=== PATIENT | female | born 1955 | race Caucasian/White ===

== ENCOUNTER → 2017-01-14 | Outpatient (CLI) | payer BC ==
[~2017-01-14] MED LIST: CHOL1000 PO; COEN75CA PO; Calcium PO; FENT25DI10 TD; FLUO40CA8 PO; FNTTP25 TOP; GLIP1TAB60 PO; HYDR-3983 PO; LIDO2SOL19 MT; LISI-461 PO; MAGIC SWIZZLE PO; MAGIC1 PO; MULT-506 PO; OMEG12006 PO; ROSU5TAB PO; RXNS10 PO; RXNS5 PO; TRAZ1TAB16 PO; TRAZ50TA35 PO; [UNRECOGNIZED DRUG - CODE] PO; [UNRECOGNIZED DRUG - OTHER]
--- NOTE | 2017-01-14 09:20 | DIAGNOSTIC IMAGING REPORT ---
ULTRASOUND OF THE CAROTID ARTERIES CLINICAL HISTORY: Head and neck carcinoma COMPARISON STUDY: None. TECHNIQUE: Real-time, grayscale, and color Doppler sonography of the carotid arteries was performed. Imaging reviewed in the transverse and longitudinal planes. NASCET criteria was utilized for stenosis calcification. FINDINGS: There is mild atherosclerotic plaque present . The peak systolic velocity within the right internal carotid artery is 76 cm/sec. The systolic velocity ratio of right internal to common carotid artery is 0.7. The peak systolic velocity within the left internal carotid artery is 59 cm/sec. The systolic velocity ratio left internal to common carotid artery is 0.7. Antegrade flow is seen in the vertebral arteries. The external carotid arteries are patent. Blood pressure in the right arm measured 142 mm/Hg. Blood pressure in the left arm measured 124 mm/Hg. IMPRESSION: No evidence of hemodynamically significant carotid stenosis. Electronically signed by: Leroy Zheng M.D. 01/14/2017 9:19 AM Dictated Date/Time: 01/14/2017 8:53 AM
== END | disposition home or self-care (01) ==
LOC: C.ULTR 08:00
PROVIDERS: ATTEND Physician Assistant Medical
DX: C02.1 Malignant neoplasm of border of tongue (principal)

== ENCOUNTER 2017-03-07 14:48 | Observation (INO) | payer BC ==
[~2017-03-07] VITALS: Ht 152.4 cm; Wt 56.9 kg
[~2017-03-07 14:48] MED LIST changes: -CHOL1000 PO; -COEN75CA PO; -Calcium PO; -FENT25DI10 TD; -LIDO2SOL19 MT; -MAGIC1 PO; -MULT-506 PO; -OMEG12006 PO; -RXNS10 PO; -RXNS5 PO; -TRAZ1TAB16 PO; -TRAZ50TA35 PO; -[UNRECOGNIZED DRUG - CODE] PO
[2017-03-07] MEDS ORDERED: SODIUM CHLORIDE 0.9% 1000ML 1,000 ML IV ONE (15:30)
[2017-03-07] MEDS ORDERED: SODIUM CHLORIDE 0.9% 1000ML 1,000 ML IV STA (15:30)
--- NOTE | 2017-03-07 15:43 | EMERGENCY ROOM VISIT NOTE ---
History Report prepared by Erika: Drew Ramires Under the Supervision of: Dr. Efrain Nichols M.D. First contact with patient: 15:20 Chief Complaint: OTHER COMPLAINT Stated Complaint: NOT EATING History of Present Illness The patient is a 61 year old female who presents to the Emergency Room with complaints of constant inability to eat for the past three days. The patient has a history of tongue cancer that spread to her lymph node. She has had three tongue surgeries and six weeks of radiation, per her friend. She states that she has not eaten anything since three days ago, and she has not drank anything since yesterday when she had 2/3 of a bottle of Ensure. She states that he tongue hurts due to the radiation, and it lopes to eat and drink. She states that she has been breathing okay, and she gags after saying only a few words. She denies any fever, chills, abdominal pain, diarrhea, and using pain killers. She states that she is somewhat nauseous, and she has a history of diabetes. She additionally states that she has lost 30 pounds in the last 6 weeks, and she cannot take medications due to not being able to eat. Source of History: patient Onset: three days Position: other (global) Quality: other (unable to eat) Timing: constant Associated Symptoms: + nausea, No SOB, No abdominal pain, No chills, No diarrhea, No fevers Note: Associated symptoms: Tongue pain Review of Systems See HPI for pertinent positives & negatives. A total of 10 systems reviewed and were otherwise negative. Past Medical & Surgical Medical Problems: (1) Cancer of tongue (2) Diabetes (3) Dysphagia Old medical records were reviewed. Nurse's notes were reviewed and I agree with. She has a history of squamous cell tongue cancer as had several surgeries and most recently has had radiation. She's not on chemotherapy. Social History Smoking Status: Never Smoker Drug Use: none Marital Status: Occupation Status: employed Current/Historical Medications Scheduled Fentanyl (Fentanyl), 25 TOP CQ72HR Fluoxetine (Prozac), 40 MG PO DAILY Glipizide (Glucotrol Xl), 2.5 MG PO QAM Lisinopril (Zestril), 10 MG PO DAILY Rosuvastatin Calcium (Crestor), 1 TAB PO DAILY Scheduled PRN Hydrocodone/Acetaminophen 7.5MG/325MG ([place] 7.5MG/325MG), 1 PO DAILY PRN for Pain Miscellaneous Medications [magic swizzle] [thrush medicine] Allergies Coded Allergies: Bupropion (Verified Allergy, Mild, Rash, 03/07/17) Erythromycin (Verified Allergy, Unknown, Unknown, 03/07/17) Metformin (Verified Allergy, Unknown, Rash, 03/07/17) Amoxicillin (Verified Adverse Reaction, Mild, Nausea, 03/07/17) Clavulanic Acid (Verified Adverse Reaction, Mild, Nausea, 03/07/17) Physical Exam Vital Signs Date Time Temp Pulse Resp B/P Pulse Ox O2 Delivery O2 Flow Rate FiO2 03/07/17 14:52 36.8 103 20 113/77 96 Room Air Physical Exam General: Non-ill appearing middle-aged female in no acute distress. HEENT: Normal cephalic atraumatic. Pupils are equal round and reactive to light. Sclerae anicteric. Extraocular movements are intact. Oropharynx has whitish lesions and whitish discoloration of tongue. Ulcerations. Voice is not muffled. No stridor. Moist mucous membranes. No swelling of the mouth lips or tongue. Skin changes to radiation under the neck and chin. Neck: Supple with a midline trachea. No meningeal signs or stiffness, no JVD or bruits. No Stridor. Chest: Clear to auscultation bilaterally. No wheezes or rhonchi. No increased work of breathing. Heart: regular rate and rhythm. Abdomen: Soft nontender, nondistended without rebound guarding or rigidity. Extremities: No cyanosis clubbing or edema. No calf tenderness or assymetry Spine/Back. Non tender to palpation. No CVA tenderness Skin: Good turgor without rashes. Neurologic exam: Cranial nerves two through 12 are intact. Motor and sensation are intact and symmetrical throughout. Medical Decision & Procedures Laboratory Results 03/07/17 15:40 Test 03/07/17 15:40 03/07/17 17:00 RDW Standard Deviation 42.7 fL (36.4-46.3) RDW Coefficient of Variation 13.8 % (11.5-14.5) White Blood Count 4.75 K/uL (4.8-10.8) Red Blood Count 4.36 M/uL (4.2-5.4) Hemoglobin 12.9 g/dL (12.0-16.0) Hematocrit 37.5 % (37-47) Mean Corpuscular Volume 86.0 fL (80-100) Mean Corpuscular Hemoglobin 29.6 pg (25-34) Mean Corpuscular Hemoglobin Concent 34.4 g/dl (32-36) Platelet Count 217 K/uL (130-400) Mean Platelet Volume 9.6 fL (7.4-10.4) Neutrophils (%) (Auto) 76.9 % Lymphocytes (%) (Auto) 15.2 % Monocytes (%) (Auto) 6.9 % Eosinophils (%) (Auto) 0.6 % Basophils (%) (Auto) 0.2 % Neutrophils # (Auto) 3.65 K/uL (1.4-6.5) Lymphocytes # (Auto) 0.72 K/uL (1.2-3.4) Monocytes # (Auto) 0.33 K/uL (0.11-0.59) Eosinophils # (Auto) 0.03 K/uL (0-0.5) Basophils # (Auto) 0.01 K/uL (0-0.2) Immature Granulocyte % (Auto) 0.2 % Immature Granulocyte # (Auto) 0.01 K/uL (0.00-0.02) Anion Gap 14.0 mmol/L (3-11) Est Creatinine Clear Calc Drug Dose 100.2 ml/min BUN/Creatinine Ratio 17.1 (10-20) Calcium Level 9.0 mg/dl (8.5-10.1) Total Bilirubin 0.6 mg/dl (0.2-1) Direct Bilirubin 0.2 mg/dl (0-0.2) Aspartate Amino Transf (AST/SGOT) 23 U/L (15-37) Alanine Aminotransferase (ALT/SGPT) 33 U/L (12-78) Alkaline Phosphatase 74 U/L (45-117) Total Protein 6.7 gm/dl (6.4-8.2) Albumin 2.8 gm/dl (3.4-5.0) Lipase 66 U/L (73-393) Laboratory studies as stated above per my review. Medications Administered Medications (Trade) Dose Ordered Sig/Katy Route Start Time Stop Time Status Last Admin Dose Admin Sodium Chloride 1,000 ml @ 999 mls/hr Q1H1M STAT IV 5/21/17 15:30 03/07/17 16:30 DC 03/07/17 15:30 999 MLS/HR Sodium Chloride (Nss 1000ml) 1,000 ml @ 200 mls/hr Q5H ONCE IV 03/07/17 15:30 03/07/17 20:29 03/07/17 15:30 200 MLS/HR ED Course 1520: Past medical records reviewed. The patient was evaluated in room C5, and a complete history and physical examination were performed. 1530: Sodium Chloride 1000 ml @ 200 mls/hr IV, Sodium Chloride 1000 ml @ 999 mls /hr IV 1635: I reevaluated the patient, and she thinks that she needs to stay for further evaluation. 1640: I discussed the patient's case with Dr. Triplett. He is going to evaluate the patient for further treatment Medical Decision Differentials include, but are not limited to; dehydration, infection, cancer complications, electrolyte or metabolic abnormality. This patient comes in as described above she has a history of recurrent tongue cancer and had recent radiation. According to the patient and her friend and there was talk about putting a feeding tube in however she was trying to push fluids from the mouth. Over the weekend she has not been able to drink much fluid or food. She does look dehydrated. She has no evidence of any airway compromise or shortness of breath. IV access was established and she was Given 1 L normal saline bolus and then 200 mL an hour IV normal saline. She has no white count or fever to suggest infection. Electrolytes are not significantly abnormal. She's been unable take her medications either which is concerning. Her blood sugar so far looks good as does her blood pressure. I do think she needs to be observed overnight for IV hydration and have her radiation oncologist also look at her when she is in the hospital. It may be that she needs a feeding tube if she does not feel better they may also be able to work on some medications as well. I did consult Dr. Triplett from the [facility] team will see her for admission. Consults Time Called: 1635 Consulting Physician: Dr. Triplett Returned Call: 1640 I discussed the patient's case with Dr. Triplett. He is going to evaluate the patient for further treatment Impression Primary Impression: Dehydration Additional Impressions: Tongue cancer Radiation adverse effect Scribe Attestation The scribe's documentation has been prepared under my direction and personally reviewed by me in its entirety. I confirm that the note above accurately reflects all work, treatment, procedures, and medical decision making performed by me. Departure Information Dispostion Being Evaluated By Hospitalist Referrals No Doctor, Assigned (PCP) Patient Instructions My [facility] Problem Qualifiers
[2017-03-07 15:58] LABS: BASO % 0.2 %; BASO ABS # 0.01 K/uL (0-0.2); COMPLETE YES; EOS % 0.6 %; HEMATOCRIT 37.5 % (37-47); IG% 0.2 %; LYMPH % 15.2 %; LYMPH ABS # 0.72 K/uL (1.2-3.4); MEAN CORPUSCULAR HEMOGLOBIN 29.6 pg (25-34); MEAN CORPUSCULAR HGB CONC 34.4 g/dl (32-36); MEAN PLATELET VOLUME 9.6 fL (7.4-10.4); MONO % 6.9 %; NEUT % 76.9 %; PLATELET COUNT 217 K/uL (130-400); RED BLOOD COUNT 4.36 M/uL (4.2-5.4); WHITE BLOOD COUNT 4.75 K/uL (4.8-10.8)
[2017-03-07 16:23] LABS: BUN/CREATININE RATIO 17.1 (10-20); CREATININE 0.47 mg/dl (0.60-1.20); POTASSIUM 3.1 mmol/L (3.5-5.1)
[2017-03-07] MEDS ORDERED: ACETAMINOPHEN 325 MG TAB PO PRN (17:00)
[2017-03-07] MEDS ORDERED: ALUMINUM/MAGNESIUM/SIMETH (MAALOX MAX) 30 ML UDC PO PRN (17:00)
[2017-03-07] MEDS ORDERED: ZOLPIDEM TARTRATE 5 MG TAB PO PRN ×2 (17:00)
[2017-03-07] MEDS ORDERED: ONDANSETRON INJ 2 MG/ML 2 ML VIAL IV PRN (17:00)
[2017-03-07 17:14] LABS: PROTHROMBIN TIME (PATIENT) 11.1 SECONDS (9.0-12.0)
[2017-03-07 17:34] VITALS: BP 113/77; PULSE 103; TEMP 36.8; O2SAT 96; BMI 24.3
[2017-03-07] MEDS ORDERED: MoRPHine SULFATE 4 MG/ML 1 ML CARP\\VIAL IV PRN (17:45)
--- NOTE | 2017-03-07 17:51 | History and Physical ---
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 The pt was going into the last dose of radiation with moderate dysphagia for which she received IV fluids earlier in the week. It was decided to continue with the last treatment and the pt has been unable to swallow for the past two days. Pt also cannot speak in long phrases, she cannot swallow her medications, drink or eat with significant 8/10 pain or desire to vomit. At rest she rates her throat pain as 5/10. Pt is still able to communicate in short phrases. Pt is using a fentanyl patch for her pain. ROS: No fevers, no night sweats, no SOB, no difficulty breathing. No abdominal pain. PMHx: HTN, HLD, Mood, DM2 (oral agents) Meds: Fentanyl Patch, VIMAL, Statin, Glypizide, SSRI SHx: Vegetarian Social History Smoking Status: Never Smoker Allergies Coded Allergies: Bupropion (Verified Allergy, Mild, Rash, 03/07/17) Erythromycin (Verified Allergy, Unknown, Unknown, 03/07/17) Metformin (Verified Allergy, Unknown, Rash, 03/07/17) Amoxicillin (Verified Adverse Reaction, Mild, Nausea, 03/07/17) Clavulanic Acid (Verified Adverse Reaction, Mild, Nausea, 03/07/17) Home Medications Scheduled Fentanyl (Fentanyl), 25 TOP CQ72HR Fluoxetine (Prozac), 40 MG PO DAILY Glipizide (Glucotrol Xl), 2.5 MG PO QAM Lisinopril (Zestril), 10 MG PO DAILY Rosuvastatin Calcium (Crestor), 1 TAB PO DAILY Scheduled PRN Hydrocodone/Acetaminophen 7.5MG/325MG ([place] 7.5MG/325MG), 1 PO DAILY PRN for Pain Miscellaneous Medications [magic swizzle] [thrush medicine] Review of Systems Constitutional: No chills, No fever Respiratory: No cough, No shortness of breath Cardiovascular: No chest pain Abdomen: No constipation, No diarrhea, No nausea, No pain, No vomiting Physical Exam Vital Signs Date Time Temp Pulse Resp B/P Pulse Ox O2 Delivery O2 Flow Rate FiO2 03/07/17 14:52 36.8 103 20 113/77 96 Room Air General Appearance: WD/WN, + mild distress Eyes: normal inspection, PERRL, EOMI, sclerae normal ENT: hearing grossly normal, + pertinent finding (Pt has a milky coating inside of her mouth and hallitosis. Left sided throat pain on phonation, swallowing and opening her mouth. Difficulty to visualize throat and tongue due to exudates. ) Respiratory/Chest: chest non-tender, lungs clear, normal breath sounds, no respiratory distress, no accessory muscle use Cardiovascular: regular rate, rhythm, no edema, no gallop, no JVD, no murmur Neurologic/Psych: alert, normal mood/affect, oriented x 3 Skin: normal color, no rash, + pertinent finding (erythematous skin changes over the left side of the neck, left anterior neck. ) Diagnostics Laboratory Results Results Past 24 Hours Test 03/07/17 15:40 Range/Units White Blood Count 4.75 4.8-10.8 K/uL Red Blood Count 4.36 4.2-5.4 M/uL Hemoglobin 12.9 12.0-16.0 g/dL Hematocrit 37.5 37-47 % Mean Corpuscular Volume 86.0 80-100 fL Mean Corpuscular Hemoglobin 29.6 25-34 pg Mean Corpuscular Hemoglobin Concent 34.4 32-36 g/dl Platelet Count 217 130-400 K/uL Mean Platelet Volume 9.6 7.4-10.4 fL Neutrophils (%) (Auto) 76.9 % Lymphocytes (%) (Auto) 15.2 % Monocytes (%) (Auto) 6.9 % Eosinophils (%) (Auto) 0.6 % Basophils (%) (Auto) 0.2 % Neutrophils # (Auto) 3.65 1.4-6.5 K/uL Lymphocytes # (Auto) 0.72 1.2-3.4 K/uL Monocytes # (Auto) 0.33 0.11-0.59 K/uL Eosinophils # (Auto) 0.03 0-0.5 K/uL Basophils # (Auto) 0.01 0-0.2 K/uL RDW Standard Deviation 42.7 36.4-46.3 fL RDW Coefficient of Variation 13.8 11.5-14.5 % Immature Granulocyte % (Auto) 0.2 % Immature Granulocyte # (Auto) 0.01 0.00-0.02 K/uL Sodium Level 142 136-145 mmol/L Potassium Level 3.1 3.5-5.1 mmol/L Chloride Level 102 98-107 mmol/L Carbon Dioxide Level 26 21-32 mmol/L Anion Gap 14.0 3-11 mmol/L Blood Urea Nitrogen 8 7-18 mg/dl Creatinine 0.47 0.60-1.20 mg/dl Est Creatinine Clear Calc Drug Dose 100.2 ml/min Estimated GFR () 124.4 Estimated GFR (Non- 107.4 BUN/Creatinine Ratio 17.1 10-20 Random Glucose 89 70-99 mg/dl Calcium Level 9.0 8.5-10.1 mg/dl Total Bilirubin 0.6 0.2-1 mg/dl Direct Bilirubin 0.2 0-0.2 mg/dl Aspartate Amino Transf (AST/SGOT) 23 15-37 U/L Alanine Aminotransferase (ALT/SGPT) 33 12-78 U/L Alkaline Phosphatase 74 45-117 U/L Total Protein 6.7 6.4-8.2 gm/dl Albumin 2.8 3.4-5.0 gm/dl Lipase 66 73-393 U/L Impression Assessment and Plan 61F who just current finished radiation therapy 3 days prior for squamous cell carcinoma of the tongue p/w a 2 day history of dysphagia, likely due to post radiation inflammation. Dysphagia 2/2 Radiation Therapy - Morphine 4mg Q4PRN IV for Pain control - Fentanyl Patch 25mcg changed every 3 days. - Toradol 30mg now + Toradol 30mg IV Q6H PRN for mild pain. - Pureed vegetarian diet as tolerated. If cannot tolerate consider NG tube or Parental nutrition. - Will hold all PO meds (Fluoxetine, VIMAL, glipizide) - Continue to rehydrate, 150ml half normal NSS + 20meq KCL. Low Potassium: 20meq IV once in the ER , continue to monitor. Will check Mg and Phos tomorrow AM. DM2 - Hold Glyburide, last taken 5 days ago. HTN - BP well controlled, will hold VIMAL, continue to monitor. Mood - No SI or HI. Fluoxetine was last taken 5 days ago. Will continue to monitor. DVT Proph: Lovenox SQ 40units daily. Diet: Vegetarian diet, pureed. Dispo: Observation, med surg, Full Code. Resident Physician Supervision Note: I interviewed and examined the patient. Discussed with Dr. Wilson and agree with findings and plan as documented in the note. Any exceptions or clarifications are listed here: None Documented By: Hiro Triplett mouth pain, after radiation, actively undergoing XRT can't really eat or drink well right now, ros otherwise negative except for as above vitals noted, pleasant, face reddened w XRT changes, tongue covered with mucous and appearing somewhat desquamated, nothing appearing consistent with thrush or bacterial infeciton at this time dysphagia/mouth pain/radiation induced tongue / mouth changes -supportive care, IVF -pain control -follow closely - if worsens or fails to improve, then consult radiation oncology, ENT, or both Resident Involvement: Resident Care Provided Care Provided: Adult [facility] Medicine
[2017-03-07] MEDS ORDERED: KETOROLAC TROMETHAMINE 30 MG/ML VIAL IV PRN (18:15)
[2017-03-07] MEDS ORDERED: POTASSIUM CHLR 20 MEQ / WTR 20 MEQ in PREMIXED WATER 100 ML IV ONE (18:30)
[2017-03-07] MEDS ORDERED: IV FLUIDS COMPLETED PRN (18:45)
[2017-03-07 19:12] VITALS: O2SAT 98
[2017-03-07 19:36] VITALS: BP 125/76; PULSE 82; TEMP 37.4; O2SAT 97
[2017-03-07] MEDS: SODIUM CHLOR 0.45% + 20MEQ KCL 1,000 ML IV SCH (19:51)
[2017-03-07] MEDS ORDERED: KETOROLAC TROMETHAMINE 30 MG/ML VIAL IV ONE (20:00)
[2017-03-07] MEDS: POTASSIUM CHLR 10MEQ / WTR IV SCH ×2 (20:50→22:12)
[2017-03-07] MEDS: ENOXAPARIN 40 MG/0.4 ML SYR SQ SCH (20:51)
[2017-03-08 00:21] VITALS: BP 95/58; PULSE 82; TEMP 36.8; O2SAT 96
[2017-03-08] MEDS: SODIUM CHLOR 0.45% + 20MEQ KCL 1,000 ML IV SCH ×4 (02:40→22:15)
[2017-03-08 04:47] VITALS: BP 95/60; PULSE 79; TEMP 36.5; O2SAT 97
[2017-03-08 06:21] VITALS: BMI 24.5
[2017-03-08 06:46] LABS: BUN/CREATININE RATIO 9.1 (10-20); CALCIUM 7.9 mg/dl (8.5-10.1); CREATININE 0.41 mg/dl (0.60-1.20); MAGNESIUM 1.8 mg/dl (1.8-2.4); PHOSPHORUS 2.4 mg/dl (2.5-4.9); POTASSIUM 3.9 mmol/L (3.5-5.1)
--- NOTE | 2017-03-08 07:38 | Family Medicine Progress Note ---
Progress Note Date of Service March 08, 2017. Subjective Pt evaluation today including: conversation w/ patient, physical exam, chart review, lab review The patient was seen and examined at bedside. Pt still reports dysphagia and pain after talking. Pt is trying to eat - took 5 bites of her eggs this morning. Last morphine was at 10pm the previous evening. Patient is resting comfortably in bed. Plan of care was described to the patient and all questions were answered. Constitutional: No chills, No fever, No sweats Cardiovascular: No chest pain Abdomen: No diarrhea, No nausea, No pain, No vomiting Female : No dysuria Objective Physical Exam General Appearance: WD/WN, no apparent distress ENT: + pertinent finding (Milky substance in the mouth, likely inflammatory exudate. Tongue is inflamed. Similar to previous day. ) Neck: + pertinent finding (Tender mandible on the left side, no appreciable lymph nodeso n the left, hard indurated skin, no evidence of infection, post radiation skin changes appreciated on the left side of the face. Unchanged exam from previous day. ) Respiratory/Chest: chest non-tender, lungs clear, normal breath sounds, no respiratory distress, no accessory muscle use Cardiovascular: regular rate, rhythm, no edema, no gallop, no JVD, no murmur Abdomen: non tender, soft Neurologic/Psychiatric: alert, normal mood/affect, oriented x 3 Assessment and Plan 61F who just current finished radiation therapy 3 days prior for squamous cell carcinoma of the tongue p/w a 2 day history of dysphagia, likely due to post radiation inflammation. Speech therapy eval today. Pt is progressing slowly in terms of PO tolerance. Dysphagia 2/2 Radiation Therapy - Morphine IV 2mg Q4 scheduled for pain control in hope of eating + 2mg IV Q4PRN IV for breakthrough pain. - Fentanyl Patch 25mcg changed every 3 days. - Toradol 30mg IV Q6H PRN for mild pain. - Pureed vegetarian diet as tolerated. Tolerating some PO. - Will hold all PO meds (Fluoxetine, VIMAL, glipizide) - Continue to rehydrate, 150ml half normal NSS + 20meq KCL. Low Potassium: 20meq IV once in the ER , continue to monitor. DM2- Hold Glyburide, last taken 5 days ago. HTN - BP well controlled, will hold VIMAL, continue to monitor. Mood - No SI or HI. Fluoxetine was last taken 5 days ago. Will continue to monitor. DVT Proph: Lovenox SQ 40units daily. Diet: Vegetarian diet, pureed. Dispo: Observation, med surg, Full Code. Resident Involvement: Resident Care Provided Care Provided: Adult Hospital Medicine History Resident Physician Supervision Note: I was present with Dr. Wilson during the history and exam. I discussed the case with the resident and agree with the findings and plan as documented in the note. Any exceptions or clarifications are listed here. Pt seen and examined at bedside. No acute events overnight. Pain control is adequate at rest but insufficient for PO intake. No pain meds in the last 12 hours. Jaw pain improving but still present L > R. General Appearance: WD/WN, no apparent distress Ears, Nose, Throat: muffled/hoarse voice, other (significant erythema and desqamation of the oral mucosa which is TTP) Neck: non-tender Respiratory: chest non-tender, lungs clear, normal breath sounds, no respiratory distress Cardiovascular: normal peripheral pulses, regular rate, rhythm, no edema, no murmur Assessment/Plan 61 y/o female h/o squamous cell carcinoma of the tongue s/p radiation therapy w / progressive dysphagia Dysphagia w/ oral pain - likely 2/2 radiation therapy - continue fentanyl patch for baseline pain control - increase morphine to standing order for pain control w/ PRN dosing to facilitate PO intake - pureed diet tolerated w/ small quantities 2/2 pain - continue IV hydration, will decrease to 80 cc/hr tonight - GU[employer] consult Hypokalemia - improved - trend BMP in AM DMII - ISS while inpatient, holding glyburide HTN - holding ACEI w/ nl BP Depression/Adjustment disorder - holding fluoxetine 2/2 NPO DVT PPX lovenox
[2017-03-08 07:44] VITALS: BP 112/69; PULSE 84; TEMP 36.8; O2SAT 98
[2017-03-08] MEDS: CHECK FENTANYL PATCH PLACEMENT SCH ×3 (08:09→15:27)
[2017-03-08 11:48] VITALS: BP 93/63; PULSE 89; TEMP 36.9; O2SAT 96
[2017-03-08] MEDS: MoRPHine SULFATE 2 MG/ML CARP IV SCH ×3 (12:42→20:51)
[2017-03-08 15:41] VITALS: BP 91/57; PULSE 82; TEMP 37.2; O2SAT 97
[2017-03-08 19:33] VITALS: BP 113/70; PULSE 79; TEMP 36.9; O2SAT 98
[2017-03-08] MEDS: ENOXAPARIN 40 MG/0.4 ML SYR SQ SCH (20:52)
[2017-03-09] VITALS (7 sets, daily range): BP systolic 94–126; BP diastolic 62–75; PULSE 76–90; TEMP 36.5–37; O2SAT 95–99; Ht 152.4 cm; Wt 56.9 kg
[2017-03-09] MEDS: CHECK FENTANYL PATCH PLACEMENT SCH ×6 (00:04→23:45)
[2017-03-09] MEDS: MoRPHine SULFATE 2 MG/ML CARP IV PRN ×2 (01:15→19:50)
[2017-03-09] MEDS: SODIUM CHLOR 0.45% + 20MEQ KCL 1,000 ML IV SCH ×3 (05:12→18:40)
[2017-03-09 07:06] LABS: HEMATOCRIT 36.5 % (37-47); MEAN CELL VOLUME 87.5 fL (80-100); MEAN CORPUSCULAR HEMOGLOBIN 28.3 pg (25-34); MEAN CORPUSCULAR HGB CONC 32.3 g/dl (32-36); MEAN PLATELET VOLUME 9.8 fL (7.4-10.4); PLATELET COUNT 187 K/uL (130-400); RED BLOOD COUNT 4.17 M/uL (4.2-5.4); WHITE BLOOD COUNT 3.51 K/uL (4.8-10.8)
[2017-03-09 07:35] LABS: BUN/CREATININE RATIO 2.9 (10-20); CALCIUM 8.3 mg/dl (8.5-10.1); CREATININE 0.37 mg/dl (0.60-1.20); POTASSIUM 4.2 mmol/L (3.5-5.1)
[2017-03-09] MEDS ORDERED: MoRPHine SULFATE 4 MG/ML 1 ML CARP\\VIAL IV SCH (08:00)
--- NOTE | 2017-03-09 08:18 | Family Medicine Progress Note ---
Progress Note Date of Service March 09, 2017. Subjective Pt evaluation today including: conversation w/ patient, physical exam, chart review, lab review The patient was seen and examined at bedside. No acute overnight events. Pt did not get any pain medications overnight. States that she only needs pain medications before eating. Pt barely ate any dinner, had a few bites of her food. Pt was able to swallow diflucan solution and Miralax (pt states she hasn't pooped in a week and a half) . Pt saw Dr. García this AM which was a nice surprise for her. Pt feels that she isn't at the point where she can drink on her own. Discussed oral pain medication solution before meals and she was happy with this plan. Will also keep on Toradol IV as she feels that it works the best. Constitutional: No chills, No fever, No sweats, No weight loss ENT: No hearing loss Respiratory: No cough, No shortness of breath, No sputum, No wheezing Cardiovascular: No chest pain Abdomen: + constipation, No diarrhea, No nausea, No pain, No vomiting Objective Physical Exam General Appearance: WD/WN, no apparent distress ENT: + pertinent finding (moderate swelling of the tongue with white purulent material in the tongue) Neck: no adenopathy Respiratory/Chest: chest non-tender, lungs clear, normal breath sounds, no respiratory distress, no accessory muscle use Cardiovascular: regular rate, rhythm, no edema, no gallop, no JVD, no murmur Abdomen: normal bowel sounds, non tender, soft, no organomegaly Extremities: non-tender, normal inspection, no pedal edema, no calf tenderness , + pertinent finding (Decreased tenderness to palpation over the left mandible. ) Neurologic/Psychiatric: alert, normal mood/affect, oriented x 3 Skin: + pertinent finding (Improved skin hyperemia over the left face and neck. Margins appears to have decreased slightly and the color is film waxer than previous day. ) Assessment and Plan 61F who just current finished radiation therapy 3 days prior to admission for squamous cell carcinoma of the tongue p/w a 2 day history of dysphagia, likely due to post radiation inflammation. Speech on board. Pt is progressing slowly in terms of PO tolerance. Now treating for oral candidiasis. Dysphagia 2/2 Radiation Therapy - Morphine 5mg oral solution AC. + 2mg IV Q4PRN IV for breakthrough pain. - c/w Fentanyl Patch 32.5mcg changed every 3 days. - Toradol 30mg IV Q6H PRN for mild pain. - Pureed vegetarian diet as tolerated. Tolerating some PO. - Will hold all PO meds (Fluoxetine, VIMAL, glipizide) - Continue to rehydrate, 150ml half normal NSS + 20meq KCL. Oral candidiasis - Diflucan 10 day course, 200mg today and 100mg thereafter. - Will continue to monitor. DM2- Hold Glyburide, last taken 5 days ago. HTN - BP well controlled, will hold VIMAL, continue to monitor. Mood - No SI or HI. Fluoxetine was last taken 5 days ago. Will continue to monitor. DVT Proph: Lovenox SQ 40units daily. Diet: Vegetarian diet, pureed. Dispo: Observation, med surg, Full Code. Resident Involvement: Resident Care Provided Care Provided: [facility] Medicine History Resident Physician Supervision Note: I was present with Dr. Wilson during the history and exam. I discussed the case with the resident and agree with the findings and plan as documented in the note. Any exceptions or clarifications are listed here. Pt seen and examined at bedside. Pain is improving both at rest and with intake , especially with pain medication. Looking forward to increasing PO intake and asking for softboiled eggs. Tolerating liquid medications by mouth. General Appearance: WD/WN, no apparent distress Ears, Nose, Throat: pharyngeal erythema (with desqamating oral mucosa and concern for candidaisis), muffled/hoarse voice, other (improved b/l L > R jaw pain w/ skin erythema) Neck: non-tender, full range of motion Respiratory: chest non-tender, lungs clear, normal breath sounds, no respiratory distress Cardiovascular: normal peripheral pulses, regular rate, rhythm, no edema, no murmur Assessment/Plan 61 y/o female h/o squamous cell carcinoma of the tongue s/p radiation therapy w / progressive dysphagia Dysphagia w/ oral pain - likely 2/2 radiation therapy - continue fentanyl patch for baseline pain control - transition to PO liquid Roxanol to prepare for discharge, qAC to facilitate POI - pureed diet tolerated w/ small quantities 2/2 pain - continue IV hydration @ 80cc/hr - [employer] consult pending Hypokalemia - resolved DMII - ISS while inpatient, holding glyburide HTN - holding ACEI w/ nl BP Depression/Adjustment disorder - restart fluoxetine in AM DVT PPX lovenox
[2017-03-09] MEDS ORDERED: FLUCONAZOLE 200 MG/5 ML UDP PO ONE ×2 (09:00)
[2017-03-09] MEDS: POLYETHYLENE (MIRALAX) 17 GM PACK PO PRN (09:11)
[2017-03-09] MEDS: MAGNESIUM HYDROXIDE SUSP 30 ML UDC PO PRN (09:11)
--- NOTE | 2017-03-09 09:39 | Radiation Oncology Progress Nt ---
Radiation Oncology Progress Nt Date of Service Date of Service: March 09, 2017. Subjective Pt evaluation today including: conversation w/ patient, physical exam, chart review, lab review, review of studies, conversation w/ consultant intern Review of Systems Constitutional: + fatigue, + weakness, + weight loss ENT: + sore throat, + trouble swallowing All Other Systems: Reviewed and Negative Objective Vital Signs Date Time Temp Pulse Resp B/P Pulse Ox O2 Delivery O2 Flow Rate FiO2 03/09/17 08:06 36.7 82 18 116/74 99 Room Air 03/09/17 04:05 36.5 76 16 94/62 97 Room Air 03/09/17 04:00 Room Air 03/09/17 00:18 36.6 82 20 126/75 98 Room Air 03/09/17 00:00 Room Air 03/08/17 19:33 36.9 79 16 113/70 98 Room Air 03/08/17 16:10 Room Air 03/08/17 15:41 37.2 82 20 91/57 97 03/08/17 11:48 36.9 89 18 93/63 96 Room Air Physical Exam General Appearance: + mild distress ENT: + pertinent finding (OC/OP: mucositis and potentially thrush noted involving tongue and oral cavity. ) Neck: supple, no adenopathy, + pertinent finding (Erythema noted in the left neck, improving significantly. ) Laboratory Results Last 24 Hours Test 03/09/17 06:17 White Blood Count 3.51 K/uL Red Blood Count 4.17 M/uL Hemoglobin 11.8 g/dL Hematocrit 36.5 % Mean Corpuscular Volume 87.5 fL Mean Corpuscular Hemoglobin 28.3 pg Mean Corpuscular Hemoglobin Concent 32.3 g/dl RDW Standard Deviation 44.4 fL RDW Coefficient of Variation 14.4 % Platelet Count 187 K/uL Mean Platelet Volume 9.8 fL Sodium Level 144 mmol/L Potassium Level 4.2 mmol/L Chloride Level 108 mmol/L Carbon Dioxide Level 27 mmol/L Anion Gap 9.0 mmol/L Blood Urea Nitrogen 1 mg/dl Creatinine 0.37 mg/dl Est Creatinine Clear Calc Drug Dose 128.3 ml/min Estimated GFR () 134.6 Estimated GFR (Non- 116.2 BUN/Creatinine Ratio 2.9 Random Glucose 74 mg/dl Calcium Level 8.3 mg/dl Assessment and Plan Ms. Tariq is a 61-year-old female who presents with locally advanced cancer involving the left lateral oral tongue status post partial glossectomy and adjuvant radiation therapy which recently completed in January 2017. Unfortunately, the patient has been admitted to the hospital due to failure to thrive and dehydration. I was asked to evaluate the patient regarding radiation therapy side effects following the completion of her therapy. At this point, I do agree with the current management of the team including IV hydration, nutritional support and speech pathology evaluation. Additionally, I would recommend consideration of Diflucan to treat oral candidiasis given the fact the patient was previously treated successfully in the beginning of her radiation therapy course with Diflucan. Please call me with any further questions or concerns. The patient had multiple questions which were answered to her full satisfaction. Continued [facility] stay due to: inadequate po fluid intake, inadequate oral pain control
[2017-03-09] MEDS ORDERED: NURSING VERBAL MED ORDER ONE (12:00)
[2017-03-09] MEDS ORDERED: FENTANYL 25 MCG/HR TDSY ONE (12:08)
[2017-03-09] MEDS ORDERED: FENTANYL 12 MCG/HR TDSY ONE (12:08)
[2017-03-09] MEDS: MoRPHine SULFATE 5 MG/0.25 ML UDP PO PRN ×3 (12:11→23:44)
[2017-03-09] MEDS: BOOST BREEZE NUTRITION DRINK 1 BOX PO SCH (18:39)
[2017-03-09] MEDS: ENOXAPARIN 40 MG/0.4 ML SYR SQ SCH (19:50)
[2017-03-10 03:44] VITALS: BP 98/63; PULSE 80; TEMP 36.7; O2SAT 95
[2017-03-10 06:38] LABS: HEMATOCRIT 37.2 % (37-47); MEAN CELL VOLUME 88.4 fL (80-100); MEAN CORPUSCULAR HEMOGLOBIN 29.5 pg (25-34); MEAN CORPUSCULAR HGB CONC 33.3 g/dl (32-36); MEAN PLATELET VOLUME 10.1 fL (7.4-10.4); PLATELET COUNT 188 K/uL (130-400); RED BLOOD COUNT 4.21 M/uL (4.2-5.4); WHITE BLOOD COUNT 3.93 K/uL (4.8-10.8)
[2017-03-10] MEDS: SODIUM CHLOR 0.45% + 20MEQ KCL 1,000 ML IV SCH (06:58)
[2017-03-10 07:10] LABS: BLOOD UREA NITROGEN < 1 mg/dl (7-18); CALCIUM 8.5 mg/dl (8.5-10.1); CARBON DIOXIDE 30 mmol/L (21-32); CHLORIDE 103 mmol/L (98-107); CREATININE 0.43 mg/dl (0.60-1.20); GLUCOSE 90 mg/dl (70-99); POTASSIUM 4.6 mmol/L (3.5-5.1); SODIUM 141 mmol/L (136-145)
[2017-03-10 07:34] VITALS: BP 102/66; PULSE 85; TEMP 36.8; O2SAT 94
[2017-03-10] MEDS: BOOST BREEZE NUTRITION DRINK 1 BOX PO SCH (08:00)
[2017-03-10] MEDS ORDERED: FLUCONAZOLE SUSP 100 MG/10 ML UDP PO SCH ×4 (08:00)
[2017-03-10] MEDS: CHECK FENTANYL PATCH PLACEMENT SCH ×2 (08:04)
[2017-03-10] MEDS: MoRPHine SULFATE 5 MG/0.25 ML UDP PO PRN ×2 (08:06→12:04)
[2017-03-10] MEDS: POLYETHYLENE (MIRALAX) 17 GM PACK PO PRN (08:07)
[2017-03-10] MEDS: MAGNESIUM HYDROXIDE SUSP 30 ML UDC PO PRN (08:07)
--- NOTE | 2017-03-10 08:49 | Family Medicine Progress Note ---
Progress Note Date of Service March 10, 2017. Subjective Pt evaluation today including: conversation w/ patient, physical exam, chart review, lab review The patient was seen and examined at bedside. Pt reports that the liquid morphine is doing well. Managed to eat all of her eggs. When mentioned she would like to go home on the oral morphine. Patient is resting comfortably in bed. Feels that her pain is getting much better. Is phonating and eating for prolonged periods of time without difficulty. Plan of care was described to the patient and all questions were answered. Constitutional: No chills, No fever, No sweats Respiratory: No cough, No dyspnea on exertion, No shortness of breath, No sputum, No wheezing Cardiovascular: No chest pain Abdomen: No nausea, No pain Objective Physical Exam General Appearance: WD/WN Eyes: EOMI Neck: + pertinent finding (improved from previous day, non tender mandibular area on left and right, still has some mucoid white substance in the mouth, neck is softer than previous day, noticeable improvement.) Respiratory/Chest: chest non-tender, lungs clear, normal breath sounds, no respiratory distress, no accessory muscle use Cardiovascular: regular rate, rhythm, no edema, no gallop, no JVD, no murmur Abdomen: normal bowel sounds, non tender, soft, no organomegaly, no pulsatile mass Neurologic/Psychiatric: alert, normal mood/affect, oriented x 3 Assessment and Plan 61F who just current finished radiation therapy 3 days prior to admission for squamous cell carcinoma of the tongue p/w a 2 day history of dysphagia, likely due to post radiation inflammation. Pt is progressing slowly in terms of PO tolerance. Now treating for oral candidiasis. Dysphagia 2/2 Radiation Therapy - Morphine 5mg oral solution AC. + 2mg IV Q4PRN IV for breakthrough pain. - c/w Fentanyl Patch 32.5mcg changed every 3 days. - Toradol 30mg IV Q6H PRN for mild pain. - Pureed vegetarian diet as tolerated. Tolerating some PO. - Will hold all PO meds (Fluoxetine, VIMAL, glipizide) - Continue to rehydrate, 150ml half normal NSS + 20meq KCL. Oral candidiasis - Diflucan 10 day course, 200mg today and 100mg thereafter. - Will continue to monitor. DM2- Hold Glyburide, last taken 5 days ago. HTN - BP well controlled, will hold VIMAL, continue to monitor. Mood - No SI or HI. Fluoxetine was last taken 5 days ago. Will continue to monitor. DVT Proph: Lovenox SQ 40units daily. Diet: Vegetarian diet, pureed. Dispo: Observation, med surg, Full Code. Resident Involvement: Resident Care Provided Care Provided: Adult [facility] Medicine History Resident Physician Supervision Note: I was present with Dr. Wilson during the history and exam. I discussed the case with the resident and agree with the findings and plan as documented in the note. Any exceptions or clarifications are listed here. Pt seen and examined at bedside. No acute events overnight. Tolerated meals well with pain well controlled. Tolerating PO meds. Feels that facial and oral pain has improved considerably. Reports no fever, choking/gasping, SOB, coughing. General Appearance: WD/WN, no apparent distress Ears, Nose, Throat: other (mildly improved mucosal erythema w/ persistent desqamation throughout) Neck: non-tender, full range of motion Respiratory: chest non-tender, lungs clear, normal breath sounds, no respiratory distress Cardiovascular: normal peripheral pulses, regular rate, rhythm, no edema, no murmur Skin Characteristics: other (improving facial erythema and left jaw pain, right jaw pain resolved) Assessment/Plan 61 y/o female h/o squamous cell carcinoma of the tongue s/p radiation therapy w / progressive dysphagia Dysphagia w/ oral pain - likely 2/2 radiation therapy - continue fentanyl patch , PO roxanol - pureed diet, advance as tolerated - off IVF Hypokalemia - resolved DMII - ISS while inpatient, holding glyburide, restart regimen as outpatient HTN - restart VIMAL-I on discharge Depression/Adjustment disorder - continue fluoxetine DVT PPX lovenox
[2017-03-10] MEDS ORDERED: FENTANYL PATCH REMOVE & WASTE SCH (08:59)
[2017-03-10] MEDS ORDERED: FENTANYL 25 MCG/HR TDSY TD SCH (09:00)
[2017-03-10] MEDS ORDERED: RXNS5 PO (10:50)
[2017-03-10] MEDS ORDERED: [UNRECOGNIZED DRUG - CODE] PO (10:50)
--- NOTE | 2017-03-10 10:59 | Discharge Instructions ---
Discharge Instructions Date of Service March 10, 2017. Admission Reason for Admission: Dysphagia Discharge Discharge Diagnosis / Problem: Dysphagia Discharge Goals Goal(s): Decrease discomfort, Improve function, Improve nutritional status Activity Recommendations Activity Limitations: resume your previous activity . Instructions / Follow-Up Instructions / Follow-Up Please take your medications as prescribed. You have been given oral Diflucan 100mg every morning for the next 7 days. You have also been given a prescription for oral solution of Morphine that should be taken before meals if you are still having pain when swallowing and eating. Follow up with your PCP within the next 7 days. Please keep all of your other oncology follow up appointments as scheduled including all of the speech and swallow therapy visits that were scheduled. Current Hospital Diet Patient's current hospital diet: Vegetarian Diet Discharge Diet Recommended Diet: Regular Diet (soft foods, pureed in physician office rep if necessary) Pending Studies Studies pending at discharge: no Medical Emergencies . Who to Call and When: Medical Emergencies: If at any time you feel your situation is an emergency, please call 911 immediately. . Non-Emergent Contact Non-Emergency issues call your: Primary Care Provider, Oncologist . . "Provider Documentation" section prepared by Octaviano Wilson. . VTE Core Measure Inpt VTE Proph given/why not?: Enoxaparin (Lovenox)SQ Resident Involvement: Resident Care Provided Care Provided: Adult Hospital Medicine
[2017-03-10 11:16] VITALS: BP 102/66; PULSE 85; TEMP 36.8; O2SAT 94
[2017-03-10 11:52] VITALS: BP 115/76; PULSE 101; TEMP 36.8; O2SAT 97
--- NOTE | 2017-03-10 19:06 | Discharge Summary ---
Discharge Summary Date of Service March 10, 2017. (Octaviano Wilson M.D.) Discharge Summary Admission Date: March 07, 2017 at 16:57 Discharge Date: March 10, 2017 Discharge Disposition: Home Principal Diagnosis: Dysphagia (Octaviano Wilson M.D.) Medication Reconciliation New Medications: Fluconazole (Fluconazole) 40 Mg/Ml Susp 100 MG PO QAM for 8 Days, #8 TAB Morphine Sulfate (Morphine Sulfate) 5 Mg/0.25 Ml Soln 5 MG PO AC PRN for Pain for 7 Days, #1 BTL 0 Refills Continued Medications: Fentanyl (Fentanyl) 25 Mcg Tdsy 25 TOP [id number] Fluoxetine (Prozac) 40 Mg Cap 40 MG PO DAILY, CAP Glipizide (Glucotrol Xl) 2.5 Mg Tab 2.5 MG PO QAM, TAB Hydrocodone/Acetaminophen 7.5MG/325MG (Wray 7.5MG/325MG) Tab 1 PO DAILY PRN for Pain, TAB PRN PAIN Lisinopril (Zestril) 10 Mg Tab 10 MG PO DAILY, TAB Rosuvastatin Calcium (Crestor) 5 Mg Tab 1 TAB PO DAILY for 30 Days, #30 TAB 5 Refills [magic swizzle] () for Pain Discontinued Medications: [thrush medicine] () Discharge Exam Subjective The patient was seen and examined at bedside. Pt reports that the liquid morphine is doing well. Managed to eat all of her eggs. When mentioned she would like to go home on the oral morphine. Patient is resting comfortably in bed. Feels that her pain is getting much better. Is phonating and eating for prolonged periods of time without difficulty. Plan of care was described to the patient and all questions were answered. Constitutional: No chills, No fever, No sweats Respiratory: No cough, No dyspnea on exertion, No shortness of breath, No sputum, No wheezing Cardiovascular: No chest pain Abdomen: No nausea, No pain Physical Exam General Appearance: WD/WN Eyes: EOMI Neck: + pertinent finding (improved from previous day, non tender mandibular area on left and right, still has some mucoid white substance in the mouth, neck is softer than previous day, noticeable improvement.) Respiratory/Chest: chest non-tender, lungs clear, normal breath sounds, no respiratory distress, no accessory muscle use Cardiovascular: regular rate, rhythm, no edema, no gallop, no JVD, no murmur Abdomen: normal bowel sounds, non tender, soft, no organomegaly, no pulsatile mass Neurologic/Psychiatric: alert, normal mood/affect, oriented x 3 (Octaviano Wilson M.D.) Hospital Course 61F who just current finished radiation therapy 3 days prior to admission for squamous cell carcinoma of the tongue p/w a 2 day history of dysphagia, likely due to post radiation inflammation. Pt is progressing slowly in terms of PO tolerance. Now treating for oral candidiasis. Dysphagia - Morphine 5mg oral solution before meals. - c/w Fentanyl Patch 32.5mcg changed every 3 days. - Recommend soft pureed diet at home. - May resume home PO meds as tolerated. Oral candidiasis - Diflucan 100mg daily x 8 days. DM2- continue Glyburide. HTN - continue VIMAL Mood - No SI or HI. Continue Fluoxetine. Total Time Spent: Greater than 30 minutes This includes examination of the patient, discharge planning, medication reconciliation, and communication with other providers. (Octaviano Wilson M.D.) Discharge Instructions Please refer to the electronic Patient Visit Report (Discharge Instructions) for additional information. (Octaviano Wilson M.D.) Resident Involvement: Resident Care Provided Care Provided: Adult [facility] (Octaviano Wilson M.D.) Assessment/Plan Resident Physician Supervision Note: I was present with Dr. Wilson during the history and exam. I discussed the case with the resident and agree with the findings and plan as documented in the note. Any exceptions or clarifications are listed here. For full attending attestation and plan, please see accompanying note from day of discharge. (Felipe Romero MD)
[2017-03-12] MEDS ORDERED: FENTANYL PATCH REMOVE & WASTE SCH ×2 (08:59→09:00)
[2017-03-12] MEDS ORDERED: FENTANYL 12 MCG/HR TDSY TD SCH (09:00)
[2017-03-12] MEDS ORDERED: FENTANYL 25 MCG/HR TDSY TD SCH (09:00)
[2017-03-26] MEDS ORDERED: LIDO2SOL19 MT (10:34)
[2017-04-08] MEDS ORDERED: MAGIC1 PO (13:51)
[2017-04-23] MEDS ORDERED: TRAZ50TA35 PO (10:25)
[2017-04-23] MEDS ORDERED: FENT25DI10 TD (10:25)
[2017-06-29] MEDS ORDERED: RXNS10 PO (11:33)
[2017-07-28] MEDS ORDERED: CALC625T13 (13:05)
[2017-07-28] MEDS ORDERED: NAPR1TAB9 PO (13:05)
[2017-07-28] MEDS ORDERED: CHOL1000 PO (13:05)
[2017-07-28] MEDS ORDERED: MULT-506 PO (13:05)
[2017-07-28] MEDS ORDERED: ROSU5TAB PO (13:05)
== END 2017-03-10 15:28 | disposition home or self-care (01) ==
LOC: ENRESERVDT → ENRESERVTM → C.EDB 14:49 → C.4E 16:57
PROVIDERS: ADMIT Family Medicine; ATTEND Family Medicine
DX: R13.10 Dysphagia, unspecified (principal); B37.0 Candidal stomatitis; E87.6 Hypokalemia; T88.8XXA Other specified complications of surgical and medical care, not elsewhere classified, initial encounter; C77.9 Secondary and unspecified malignant neoplasm of lymph node, unspecified; C02.9 Malignant neoplasm of tongue, unspecified; E11.9 Type 2 diabetes mellitus without complications; I10 Essential (primary) hypertension; Z92.3 Personal history of irradiation; Z85.810 Personal history of malignant neoplasm of tongue

== ENCOUNTER → 2017-03-26 | Outpatient (CLI) | payer BC ==
[~2017-03-26] MED LIST changes: +CALC625T13; +CHOL1000 PO; +FENT25DI10 TD; +FENTANYL CITRATE INJ 50 MCG/1 ML 2 ML VIAL ONE; +LIDO2SOL19 MT; +MAGIC1 PO; +MULT-506 PO; +NAPR1TAB9 PO; +PROPOFOL IV EMULSION 10 MG/ML 20 ML VIAL IV ONE; +RXNS10 PO; +RXNS5 PO; +TRAZ50TA35 PO; +[UNRECOGNIZED DRUG - CODE] PO; -[UNRECOGNIZED DRUG - OTHER]
[2017-03-26 10:14] VITALS: BP 110/76; PULSE 96; TEMP 36.6; O2SAT 98
--- NOTE | 2017-03-26 11:58 | Radiation Oncology Follow-Up ---
Radiation Oncology Follow-Up Date of Visit Mar 26, 2017. Reason For Visit Three-week follow-up Radiation Completion Date finished 03-05-2017 Diagnosis (1) Tongue cancer Status: Acute Onset Date: 09/26/2015 Location: left lateral tongue Histology Subtype: squamous cell carcinoma Stage: lll Permanent Comment: STAGING: Oral cavity, left lateral tongue, SCC, p16 negative , [id number], stage III Biopsy 03/25/2016 benign Status post partial glosectomy 09/26/15 Status post re-excision for recurrence 11/21/2015 Biopsy 07/01/2016 showing recurrence squamous cell carcinoma Status post partial glossectomy and node dissection 09/29/2016 Status post neck dissection 10/29/2016 Squamous cell carcinoma stage pT1 pN1 M0 Status post completion of radiation therapy 03/05/2017 received 6600 cGy Last Edited By: Antonella Devi on Mar 19, 2017 10:28 History of Present Illness Ms. Tariq is a 61-year-old female who initially presented to her dentist and had an ulcer on her tongue that was persistent and was not getting better. The patient initiated a biopsy on 03/25/2016 which only revealed acanthotic squamous mucosa. The patient subsequently underwent a partial glossectomy underneath the supervision of Dr. Naresh Carvalho on 09/26/2015 which revealed invasive well-differentiated squamous cell carcinoma; the margins were initially positive however all the margins were reexcised during the procedure and were ultimately negative. The tumor specimen measured up to 4 mm in the greatest dimension in the thickness was 1.4 mm and was grade 1. Unfortunately, the patient developed a recurrence and underwent a reexcision on 11/21/2015 which confirmed recurrent invasive squamous cell carcinoma and high- grade dysplasia with close margins measuring 0.3 mm of the deep margin; All the other peripheral margins were negative. The patient continued to do relatively well until there were concerning findings along the left lateral tongue and the patient underwent a MRI of the head and neck on 08/04/2016 which revealed no evidence of malignancy. The patient had a repeat biopsy on 07/01/2016 which revealed ulcerated and infiltrating moderately differentiated squamous cell carcinoma that is p16 negative. The patient underwent a left partial glossectomy with sentinel lymph node biopsy on 09/29/2016 which revealed moderately differentiated invasive squamous cell carcinoma that measured 1.2 cm in the greatest dimension. The tumor thickness was 6 mm and it was grade 2. There is no evidence of lymphovascular space invasion or perineural invasion. 3 sentinel lymph nodes were also excised at the time of surgery and 1 lymph node Kienbck positive for metastatic squamous cell carcinoma with no evidence of extracapsular extension. The patient was brought back to the operating room on 10/29/2016 for a left neck dissection. In total, 28 lymph nodes were excised and all were negative for metastatic squamous cell carcinoma. The patient was seen in consultation by Dr. Hernandez from radiation oncology at [facility]. Dr. Hernandez recommended adjuvant radiation therapy to the postoperative site, left and right necks. At the time of her radiation oncology consultation, there was concern for potential recurrence along the left lateral tongue in the patient was referred back to Dr. Carvalho who felt it was most likely related to healthy granulation tissue. The patient wanted to consider a second opinion consultation so we are now seeing the patient in consultation. Overall, the patient is doing relatively well. She currently has no pain or difficulty swallowing. She is doing relatively well overall. Status post completion of radiation therapy 03/05/2017 received 6600 cGy. Interim History She has continued to have difficulty with swallowing since the completion of her treatment. She was hospitalized from March 07 to March 10. She was given IV hydration. There was discussion of possible PEG tube placement. This did not take place. Since her discharge she has continued to have difficulty with intake of solid and liquids. When discharge she was placed on Diflucan for 8 days. This is now complete. The pain that she feels is mainly in the back of the tongue and the soft palate. She gives a pain rating up to level VII. Of late she is now developed nausea. She has had a total of 24 pounds in weight loss since beginning of treatment. She has lost 9 pounds since her hospitalization. She is using a fentanyl patch at 37.5 g per hour. She also has available liquid morphine. She has Magic swizzle and viscous lidocaine. Allergies Coded Allergies: Bupropion (Verified Allergy, Mild, Rash, 03/07/17) Erythromycin (Verified Allergy, Unknown, Unknown, 03/07/17) Metformin (Verified Allergy, Unknown, Rash, 03/07/17) Amoxicillin (Verified Adverse Reaction, Mild, Nausea, 03/07/17) Clavulanic Acid (Verified Adverse Reaction, Mild, Nausea, 03/07/17) Home Medications Scheduled Fentanyl (Fentanyl), 37 MCG TOP CQ72HR Fluconazole (Fluconazole), 100 MG PO QAM Fluoxetine (Prozac), 40 MG PO DAILY Glipizide (Glucotrol Xl), 2.5 MG PO QAM Lisinopril (Zestril), 10 MG PO DAILY Rosuvastatin Calcium (Crestor), 1 TAB PO DAILY [magic swizzle], 2 TSP PO UD Scheduled PRN Hydrocodone/Acetaminophen 7.5MG/325MG ([place] 7.5MG/325MG), 1 PO Q6 PRN for Moderate Pain Lidocaine Hcl (Mouth-Throat) (Lidocaine Viscous), 2 % MT DIRECTED PRN for Moderate Pain Morphine Sulfate (Morphine Sulfate), 5 MG PO AC PRN for Pain Review of Systems Gastrointestinal: Symptoms: Nausea, Constipation GI Comments: started yesterday, does not have any meds for nausea, dry heaves Oral: Symptoms: Painful Erythema, Can Only Take Liquids, Scant Saliva/Dry Mouth, Saliva amt. Increased Other Oral Symptoms: "and has blood in the mucus with a foul odor " Respiratory: Symptoms: WNL Urinary: Symptoms: WNL Skin: Symptoms: No Problems Physical Exam Vital Signs Date Time Temp Pulse Resp B/P (MAP) Pulse Ox O2 Delivery O2 Flow Rate FiO2 03/26/17 10:14 36.6 96 16 110/76 98 Pain: Pain Onset: has had a long time, since 1 st week of radiation Side: Bilateral Patient Pain Scale: 0 - 10 Initial Pain Intensity: 6.0 Pain Description: Burning Additional Comments: gets worse at times General Appearance: no apparent distress, + thin Eyes: normal inspection, EOMI ENT: normal ENT inspection, hearing grossly normal, + pertinent finding ( examination of the mouth reveals mucositis grade 2-3 with ulcerations. There is mild white exudate on the edge of the ulcerations. This is also noted on the buccal mucosa as well as the hard and soft palate.) Neck: no adenopathy, + pertinent finding (mild tenderness anteriorly with resolving hyperpigmentation. There is no wet or dry desquamation.) Respiratory/Chest: lungs clear, no respiratory distress, no accessory muscle use Cardiovascular: regular rate, rhythm, no gallop, no murmur Neurologic/Psychiatric: no motor/sensory deficits, alert, normal mood/affect Skin: warm/dry Laboratory Studies Test 02/03/17 16:35 03/07/17 15:20 03/07/17 15:40 03/08/17 05:49 Immature Granulocyte % (Auto) 0.2 % 0.2 % White Blood Count 8.55 K/uL (4.8-10.8) 4.75 K/uL (4.8-10.8) Red Blood Count 4.79 M/uL (4.2-5.4) 4.36 M/uL (4.2-5.4) Hemoglobin 14.2 g/dL (12.0-16.0) 12.9 g/dL (12.0-16.0) Hematocrit 43.1 % (37-47) 37.5 % (37-47) Mean Corpuscular Volume 90.0 fL (80-100) 86.0 fL (80-100) Mean Corpuscular Hemoglobin 29.6 pg (25-34) 29.6 pg (25-34) Mean Corpuscular Hemoglobin Concent 32.9 g/dl (32-36) 34.4 g/dl (32-36) Platelet Count 219 K/uL (130-400) 217 K/uL (130-400) Mean Platelet Volume 9.4 fL (7.4-10.4) 9.6 fL (7.4-10.4) Neutrophils (%) (Auto) 82.3 % 76.9 % Lymphocytes (%) (Auto) 5.6 % 15.2 % Monocytes (%) (Auto) 10.8 % 6.9 % Eosinophils (%) (Auto) 0.9 % 0.6 % Basophils (%) (Auto) 0.2 % 0.2 % Neutrophils # (Auto) 7.03 K/uL (1.4-6.5) 3.65 K/uL (1.4-6.5) Lymphocytes # (Auto) 0.48 K/uL (1.2-3.4) 0.72 K/uL (1.2-3.4) Monocytes # (Auto) 0.92 K/uL (0.11-0.59) 0.33 K/uL (0.11-0.59) Eosinophils # (Auto) 0.08 K/uL (0-0.5) 0.03 K/uL (0-0.5) Basophils # (Auto) 0.02 K/uL (0-0.2) 0.01 K/uL (0-0.2) Immature Granulocyte # (Auto) 0.02 K/uL (0.00-0.02) 0.01 K/uL (0.00-0.02) Total Bilirubin 0.5 mg/dl (0.2-1) 0.6 mg/dl (0.2-1) Aspartate Amino Transferase (AST) 46 U/L (15-37) 23 U/L (15-37) Alanine Aminotransferase (ALT) 75 U/L (12-78) 33 U/L (12-78) Alkaline Phosphatase 93 U/L (45-117) 74 U/L (45-117) Total Protein 8.1 gm/dl (6.4-8.2) 6.7 gm/dl (6.4-8.2) Albumin 3.9 gm/dl (3.4-5.0) 2.8 gm/dl (3.4-5.0) Globulin 4.2 gm/dl (2.5-4.0) Albumin/Globulin Ratio 0.9 (0.9-2) Prothrombin Time 11.1 SECONDS (9.0-12.0) Prothrombin Time INR 1.0 (0.9-1.1) Direct Bilirubin 0.2 mg/dl (0-0.2) Lipase 66 U/L (73-393) Hepatitis C Antibody Screen NEG (NEG) Phosphorus Level 2.4 mg/dl (2.5-4.9) Magnesium Level 1.8 mg/dl (1.8-2.4) Test 03/09/17 06:17 03/10/17 06:11 White Blood Count 3.51 K/uL (4.8-10.8) 3.93 K/uL (4.8-10.8) Red Blood Count 4.17 M/uL (4.2-5.4) 4.21 M/uL (4.2-5.4) Hemoglobin 11.8 g/dL (12.0-16.0) 12.4 g/dL (12.0-16.0) Hematocrit 36.5 % (37-47) 37.2 % (37-47) Mean Corpuscular Volume 87.5 fL (80-100) 88.4 fL (80-100) Mean Corpuscular Hemoglobin 28.3 pg (25-34) 29.5 pg (25-34) Mean Corpuscular Hemoglobin Concent 32.3 g/dl (32-36) 33.3 g/dl (32-36) RDW Standard Deviation 44.4 fL (36.4-46.3) 46.1 fL (36.4-46.3) RDW Coefficient of Variation 14.4 % (11.5-14.5) 14.5 % (11.5-14.5) Platelet Count 187 K/uL (130-400) 188 K/uL (130-400) Mean Platelet Volume 9.8 fL (7.4-10.4) 10.1 fL (7.4-10.4) Sodium Level 144 mmol/L (136-145) 141 mmol/L (136-145) Potassium Level 4.2 mmol/L (3.5-5.1) 4.6 mmol/L (3.5-5.1) Chloride Level 108 mmol/L (98-107) 103 mmol/L (98-107) Carbon Dioxide Level 27 mmol/L (21-32) 30 mmol/L (21-32) Anion Gap 9.0 mmol/L (3-11) 8.0 mmol/L (3-11) Blood Urea Nitrogen 1 mg/dl (7-18) < 1 mg/dl (7-18) Creatinine 0.37 mg/dl (0.60-1.20) 0.43 mg/dl (0.60-1.20) Est Creatinine Clear Calc Drug Dose 128.3 ml/min 110.0 ml/min Estimated GFR () 134.6 128.1 Estimated GFR (Non- 116.2 110.6 BUN/Creatinine Ratio 2.9 (10-20) (10-20) Random Glucose 74 mg/dl (70-99) 90 mg/dl (70-99) Calcium Level 8.3 mg/dl (8.5-10.1) 8.5 mg/dl (8.5-10.1) Assessment & Plan Plan: Patient is also seen and examined by Dr. Maldonado today. For her nausea she was given Zofran ODT 8 mg every 6 hours when necessary #30 and 2 refills. She is being seen today by the dietitian. We were in contact with the respiratory therapy technician and will have an emergent take tube placed today. Home health nurses will be consult and prescription will be written for the recommended nutrition. She has nystatin oral suspension available. We had previously prescribed this during treatment. She will continue to use this. She can swish and spit this out if it causes difficulty when swallowed. We discussed increasing the fentanyl patch. She does not currently wish to increase the dose of the fentanyl patch. She has liquid morphine available prescribed when she was discharged from the hospital. We asked her to return to our office in 2 weeks for recheck visit. She will call if she has any questions or concerns in the interim. Total Time In Follow-Up I spent 30 minutes speaking to the patient and performing examination. I spent 20 minutes reviewing information in completing this note. AK Copy To Naresh Carvalho M.D.
== END | disposition home or self-care (01) ==
LOC: C.ONC 10:04
PROVIDERS: ATTEND Physician Assistant Medical
DX: Z08 Encounter for follow-up examination after completed treatment for malignant neoplasm (principal); Z92.3 Personal history of irradiation; Z85.810 Personal history of malignant neoplasm of tongue

== ENCOUNTER → 2017-03-26 | Day surgery (SDC) | payer BC ==
[2017-03-09 07:12] VITALS: BMI 24.8
[~2017-03-26] MED LIST changes: +CEFAZOLIN IV 2,000 MG/60 ML D5W IV SCH; +FENTANYL CITRATE INJ 50 MCG/1 ML 2 ML VIAL IV ONE; +ONDANSETRON INJ 2 MG/ML 2 ML VIAL ONE; +SODIUM CHLORIDE 0.9% 500ML 500 ML IV ONE
[2017-03-26 13:18] VITALS: BMI 22.0
--- NOTE | 2017-03-26 14:08 | Endo History and Physical ---
History & Physical Date of Service: Mar 26, 2017. Chief Complaint: Dysphagia, head and neck cancer Referring Physician: Dr. Lucie Sebastian History of Present Illness 61 yo CF who presents for EGD with PEG tube placement secondary to dysphagia from head and neck cancer s/p radiation therapy. Past Surgical History Hx Cardiac Surgery: No Hx Internal Defibrillator: No Hx Pacemaker: No Hx Abdominal Surgery: Yes (tumor removal from uterus) Hx of Implantable Prosthesis: No Hx Post-Op Nausea and Vomiting: No Hx Cancer Surgery: Yes (head and neck) Hx Thoracic Surgery: No Hx Orthopedic: No Hx Urinary Tract Surgery: No Family History None Social History Smoking Status: Former Smoker Hx Substance Use: Yes (37mcg fentanyl patches on r shoulder) Hx Alcohol Use: No Allergies Coded Allergies: Bupropion (Verified Allergy, Mild, Rash, 03/07/17) Erythromycin (Verified Allergy, Unknown, Unknown, 03/07/17) Metformin (Verified Allergy, Unknown, Rash, 03/07/17) Amoxicillin (Verified Adverse Reaction, Mild, Nausea, 03/07/17) Clavulanic Acid (Verified Adverse Reaction, Mild, Nausea, 03/07/17) Current Medications Reported Home Medications Medications Dose Route/Sig Max Daily Dose Days Date Category Dose Instructions Lidocaine Viscous (Lidocaine Hcl (Mouth-Throat)) 2 % Apryl 2 % MT DIRECTED PRN 03/26/17 Reported Morphine Sulfate 5 Mg/0.25 Ml Soln 5 Mg PO AC PRN 7 03/10/17 Rx Fluconazole 40 Mg/Ml Susp 100 Mg PO QAM 8 03/10/17 Rx Fentanyl 25 Mcg Tdsy 37 Mcg TOP CQ72HR 02/15/17 Reported [magic swizzle] 2 Tsp PO UD 02/01/17 Reported [place] 7.5MG/325MG (Acetaminophen/Hydrocodone Bitart) Tab 1 PO Q6 PRN 02/01/17 Reported PRN PAIN Zestril (Lisinopril) 10 Mg Tab 10 Mg PO DAILY 12/15/16 Reported NOT ABLE TO TAKE RIGHT NOW BECAUSE SHE IS NOT ABLE TO SWALLOW THE PILL Glucotrol Xl (Glipizide) 2.5 Mg Tab 2.5 Mg PO QAM 12/15/16 Reported NOT ABLE TO TAKE NOW BECAUSE SHE IS NOT ABLE TO SWALLOW THE PILL Prozac (Fluoxetine HCl) 40 Mg Cap 40 Mg PO DAILY 12/15/16 Reported NOT ABLE TO TAKE RIGHT NOW BECAUSE SHE IS NOT ABLE TO SWALLOW THE PILL Crestor (Rosuvastatin Calcium) 5 Mg Tab 1 Tab PO DAILY 30 12/15/16 Reported NOT ABLE TO TAKE RIGHT NOW BECAUSE SHE IS NOT ABLE TO SWALLOW THE PILL Vital Signs Weight (Kilograms): 51.81 Height (Feet): 5 Height (Inches): 0 Date Time Temp Pulse Resp B/P (MAP) Pulse Ox O2 Delivery O2 Flow Rate FiO2 03/26/17 13:44 36.9 93 18 133/79 (97) 98 Room Air Physical Exam General Appearance: WD/WN, no apparent distress Respiratory/Chest: Auscultation: breath sounds normal Cardiovascular: Heart Auscultation: RRR Abdomen: Bowel Sounds: normal Inspection & Palpation: soft, non-distended, no tenderness, guarding & rebound Assessment and Plan Assessment: 61 yo CF who presents for EGD with PEG tube placement secondary to dysphagia from head and neck cancer s/p radiation therapy. Plan: Proceed with EGD with PEG tube placement.
--- NOTE | 2017-03-26 15:10 | Discharge Instructions ---
Endoscopy Patient Instructions Date / Procedure Performed Mar 26, 2017. Percutaneous Endoscopic Gastrotomy (P.E.G) Tube Replacement / Removal Allergy Information Coded Allergies: Bupropion (Verified Allergy, Mild, Rash, 03/07/17) Erythromycin (Verified Allergy, Unknown, Unknown, 03/07/17) Metformin (Verified Allergy, Unknown, Rash, 03/07/17) Amoxicillin (Verified Adverse Reaction, Mild, Nausea, 03/07/17) Clavulanic Acid (Verified Adverse Reaction, Mild, Nausea, 03/07/17) Home Medication List Scheduled Fentanyl (Fentanyl), 37 MCG TOP CQ72HR Fluconazole (Fluconazole), 100 MG PO QAM Fluoxetine (Prozac), 40 MG PO DAILY Glipizide (Glucotrol Xl), 2.5 MG PO QAM Lisinopril (Zestril), 10 MG PO DAILY Rosuvastatin Calcium (Crestor), 1 TAB PO DAILY [magic swizzle], 2 TSP PO UD Scheduled PRN Hydrocodone/Acetaminophen 7.5MG/325MG ([place] 7.5MG/325MG), 1 PO Q6 PRN for Moderate Pain Lidocaine Hcl (Mouth-Throat) (Lidocaine Viscous), 2 % MT DIRECTED PRN for Moderate Pain Morphine Sulfate (Morphine Sulfate), 5 MG PO AC PRN for Pain Discharge Date / Findings Mar 26, 2017. Successful PEG tube placement Medication Instructions OK to resume all medications today as prescribed Reported Home Medications Medications Dose Route/Sig Max Daily Dose Days Date Category Dose Instructions Lidocaine Viscous (Lidocaine Hcl (Mouth-Throat)) 2 % Apryl 2 % MT DIRECTED PRN 03/26/17 Reported Morphine Sulfate 5 Mg/0.25 Ml Soln 5 Mg PO AC PRN 7 03/10/17 Rx Fluconazole 40 Mg/Ml Susp 100 Mg PO QAM 8 03/10/17 Rx Fentanyl 25 Mcg Tdsy 37 Mcg TOP CQ72HR 02/15/17 Reported [magic swizzle] 2 Tsp PO UD 02/01/17 Reported [place] 7.5MG/325MG (Acetaminophen/Hydrocodone Bitart) Tab 1 PO Q6 PRN 02/01/17 Reported PRN PAIN Zestril (Lisinopril) 10 Mg Tab 10 Mg PO DAILY 12/15/16 Reported NOT ABLE TO TAKE RIGHT NOW BECAUSE SHE IS NOT ABLE TO SWALLOW THE PILL Glucotrol Xl (Glipizide) 2.5 Mg Tab 2.5 Mg PO QAM 12/15/16 Reported NOT ABLE TO TAKE NOW BECAUSE SHE IS NOT ABLE TO SWALLOW THE PILL Prozac (Fluoxetine HCl) 40 Mg Cap 40 Mg PO DAILY 12/15/16 Reported NOT ABLE TO TAKE RIGHT NOW BECAUSE SHE IS NOT ABLE TO SWALLOW THE PILL Crestor (Rosuvastatin Calcium) 5 Mg Tab 1 Tab PO DAILY 30 12/15/16 Reported NOT ABLE TO TAKE RIGHT NOW BECAUSE SHE IS NOT ABLE TO SWALLOW THE PILL Provider Instructions Activity Recommendations * Resume regular activity . Diet Recommendations * Resume previous diet. * Advance diet as tolerated. * Before each feeding, aspirate the tube for residual gastric contents. Hold feedings for residual of 50 ml or more. * Elevate the head of the bed during and after feedings for 30-60 minutes . Medication Instructions * Resume usual medications. * Always flush the tube with warm water after administration of medication. Follow-Up Information Follow-up with Dr. Lucie Sebastian as scheduled Anesthesia Information What You Should Know You have had a procedure that required some medicine to reduce anxiety and discomfort. This treatment is called moderate sedation. After receiving the treatment, you may be sleepy, but you will be able to breathe on your own. The effects of the treatment may last for several hours. Follow these instructions along with Activity/Diet recommendations noted above: * Do NOT do anything where dizziness or clumsiness would be dangerous. * Rest quietly at home today, then you can be up and about tomorrow. * Have a responsible person stay with you the rest of today. * You may have had an I.V. today. If so, you may take the dressing off later today. Symptoms Additional Instructions If you experience any of the following symptoms after your procedure seek medical attention at your closest Emergency Room and/or call your primary care physician immediately: * Severe abdominal pain or bloating * Fever greater than 101.1 degrees within 24 hours after the procedure * Uncontrolled nausea and vomiting Avoid all tobacco products. If you need help to stop smoking, call [place]'s FREE QUIT LINE at [phone]- [phone]. Your discharge instructions were prepared by provider Scott Baker. Patient Instructions Signature Page Cristine Tariq Patient (or Guardian) Signature/Date: I have read and understand the instructions given to me by my caregivers. Caregiver/RN/Doctor Signature/Date: The above-named patient and/or guardian has received patient instructions on this date. + Original Patient Signature Page (only) stays with chart. Please make copy for patient.
--- NOTE | 2017-03-26 15:26 | GI REPORT ---
Procedure Date: 03/26/2017 2:48 PM Procedure: Upper GI endoscopy Indications: Dysphagia, Head and Neck Cancer Medicines: Monitored Anesthesia Care Complications: No immediate complications. Estimated Blood Loss: Estimated blood loss: none. Procedure: Pre-Anesthesia Assessment: - Prior to the procedure, a History and Physical was performed, and patient medications and allergies were reviewed. The patient's tolerance of previous anesthesia was also reviewed. The risks and benefits of the procedure and the sedation options and risks were discussed with the patient. All questions were answered, and informed consent was obtained. Prior Anticoagulants: The patient has taken no previous anticoagulant or antiplatelet agents. ASA Grade Assessment: III - A patient with severe systemic disease. After reviewing the risks and benefits, the patient was deemed in satisfactory condition to undergo the procedure. After obtaining informed consent, the endoscope was passed under direct vision. Throughout the procedure, the patient's blood pressure, pulse, and oxygen saturations were monitored continuously. The Scope was introduced through the mouth, and advanced to the second part of duodenum. The upper GI endoscopy was accomplished without difficulty. The patient tolerated the procedure well. Findings: One moderate benign-appearing, intrinsic stenosis was found. This measured 1.2 cm (inner diameter) x 1 cm (in length) and was traversed. Stenosis was dilated with passage of PEG bumper. The entire examined stomach was normal. Placement of an externally removable PEG with no T-fasteners was successfully completed. The external bumper was at the 4.0 cm marking on the tube. Estimated blood loss was minimal. The examined duodenum was normal. Impression: - Benign-appearing esophageal stenosis. - Normal stomach. - Normal examined duodenum. - An externally removable PEG placement was successfully completed. - No specimens collected. Recommendation: - Resume previous diet. - Continue present medications. - Please follow the post-PEG recommendations including: Nutrition consult for formula and volume and start using PEG today. - Return to referring physician as previously scheduled. Scott Baker, 03/26/2017 3:25:35 PM This report has been signed electronically. Note Initiated On: 03/26/2017 2:48 PM I attest to the content of the Intraoperative Record and orders documented therein, exceptions below
[2017-03-26 15:52] VITALS: BP 124/82; PULSE 86; O2SAT 93
--- NOTE | 2017-03-26 18:00 | Anesthesiology Progress Note ---
Anesthesia Post Op Note Date & Time Mar 26, 2017 at 18:01 Vital Signs Pain Intensity: 6 Vital Signs Past 12 Hours Date Time Temp Pulse Resp B/P (MAP) Pulse Ox O2 Delivery O2 Flow Rate FiO2 03/26/17 15:52 86 16 124/82 93 Room Air 03/26/17 15:42 89 16 159/87 97 Room Air 03/26/17 15:32 93 16 136/87 96 Room Air 03/26/17 15:22 90 16 139/87 (104) 98 Room Air 03/26/17 13:44 36.9 93 18 133/79 (97) 98 Room Air Notes Mental Status: alert / awake / arousable, participated in evaluation Pt Amnestic to Procedure: Yes Nausea / Vomiting: adequately controlled Pain: adequately controlled Airway Patency, RR, SpO2: stable & adequate BP & HR: stable & adequate Hydration State: stable & adequate Anesthetic Complications: no major complications apparent
== END | disposition home or self-care (01) ==
LOC: C.GI 12:12
PROVIDERS: ATTEND Internal Medicine
DX: R13.10 Dysphagia, unspecified (principal); K22.2 Esophageal obstruction; C76.0 Malignant neoplasm of head, face and neck; Z87.891 Personal history of nicotine dependence

== ENCOUNTER → 2017-04-08 | Outpatient (CLI) | payer BC ==
[~2017-04-08] MED LIST changes: -CEFAZOLIN IV 2,000 MG/60 ML D5W IV SCH; -FENTANYL CITRATE INJ 50 MCG/1 ML 2 ML VIAL IV ONE; -FENTANYL CITRATE INJ 50 MCG/1 ML 2 ML VIAL ONE; -ONDANSETRON INJ 2 MG/ML 2 ML VIAL ONE; -PROPOFOL IV EMULSION 10 MG/ML 20 ML VIAL IV ONE; -SODIUM CHLORIDE 0.9% 500ML 500 ML IV ONE
[2017-04-08 12:57] VITALS: BP 94/62; PULSE 92; TEMP 37.2; O2SAT 97
--- NOTE | 2017-04-08 16:14 | Radiation Oncology Follow-Up ---
Radiation Oncology Follow-Up Date of Visit Apr 08, 2017. (Antonella Devi PA-C) Reason For Visit 2 month follow-up (Antonella Devi PA-C) Radiation Completion Date 03/05/17 (Antonella Devi PA-C) Diagnosis (1) Tongue cancer Status: Acute Onset Date: 09/26/2015 Location: left lateral tongue Histology Subtype: squamous cell Stage: lll Permanent Comment: STAGING: Oral cavity, left lateral tongue, SCC, p16 negative , [id number], stage III Biopsy 03/25/2016 benign Status post partial glosectomy 09/26/15 Status post re-excision for recurrence 11/21/2015 Biopsy 07/01/2016 showing recurrence squamous cell carcinoma Status post partial glossectomy and node dissection 09/29/2016 Status post neck dissection 10/29/2016 Squamous cell carcinoma stage pT1 pN1 M0 Status post completion of radiation therapy 03/05/2017 received 6600 cGy Last Edited By: Antonella Devi on Mar 19, 2017 10:28 (Antonella Devi PA-C) History of Present Illness Ms. Tariq is a 61-year-old female who initially presented to her dentist and had an ulcer on her tongue that was persistent and was not getting better. The patient initiated a biopsy on 03/25/2016 which only revealed acanthotic squamous mucosa. The patient subsequently underwent a partial glossectomy underneath the supervision of Dr. Naresh Carvalho on 09/26/2015 which revealed invasive well-differentiated squamous cell carcinoma; the margins were initially positive however all the margins were reexcised during the procedure and were ultimately negative. The tumor specimen measured up to 4 mm in the greatest dimension in the thickness was 1.4 mm and was grade 1. Unfortunately, the patient developed a recurrence and underwent a reexcision on 11/21/2015 which confirmed recurrent invasive squamous cell carcinoma and high- grade dysplasia with close margins measuring 0.3 mm of the deep margin; All the other peripheral margins were negative. The patient continued to do relatively well until there were concerning findings along the left lateral tongue and the patient underwent a MRI of the head and neck on 08/04/2016 which revealed no evidence of malignancy. The patient had a repeat biopsy on 07/01/2016 which revealed ulcerated and infiltrating moderately differentiated squamous cell carcinoma that is p16 negative. The patient underwent a left partial glossectomy with sentinel lymph node biopsy on 09/29/2016 which revealed moderately differentiated invasive squamous cell carcinoma that measured 1.2 cm in the greatest dimension. The tumor thickness was 6 mm and it was grade 2. There is no evidence of lymphovascular space invasion or perineural invasion. 3 sentinel lymph nodes were also excised at the time of surgery and 1 lymph node Kienbck positive for metastatic squamous cell carcinoma with no evidence of extracapsular extension. The patient was brought back to the operating room on 10/29/2016 for a left neck dissection. In total, 28 lymph nodes were excised and all were negative for metastatic squamous cell carcinoma. The patient was seen in consultation by Dr. Hernandez from radiation oncology at [facility]. Dr. Hernandez recommended adjuvant radiation therapy to the postoperative site, left and right necks. At the time of her radiation oncology consultation, there was concern for potential recurrence along the left lateral tongue in the patient was referred back to Dr. Carvalho who felt it was most likely related to healthy granulation tissue. The patient wanted to consider a second opinion consultation so we are now seeing the patient in consultation. Overall, the patient is doing relatively well. She currently has no pain or difficulty swallowing. She is doing relatively well overall. Status post completion of radiation therapy 03/05/2017 received 6600 cGy. (Antonella Devi PA-C) Interim History She has been using her feeding tube over the past 2 weeks. She has tried to steadily increase the amount of nutrition that she is using. She does find it difficult to place a full carton without filling full. She was wondering about spreading the feedings out throughout the day and evening. She's had no difficulty with using the tube. She does continue to have discomfort of her mouth up to level V. She continues on the fentanyl patch. She will have fluid produced in her mouth from the irritation. She describes this is a bloody sero- sanguinous fluid. At times there are small blood clots. She has discomfort in the upper pharynx also with swallowing. She does continue to try to swallow fluids. She is wondering about speech therapy through the home health nurse. She is using the nystatin oral suspension. At times the phlegm in her throat is thick and causes her to gag easily. We had previously discussed on the phone increasing hydration. (Antonella Devi PA-C) Allergies Coded Allergies: Bupropion (Verified Allergy, Mild, Rash, 03/07/17) Erythromycin (Verified Allergy, Unknown, Unknown, 03/07/17) Metformin (Verified Allergy, Unknown, Rash, 03/07/17) Amoxicillin (Verified Adverse Reaction, Mild, Nausea, 03/07/17) Clavulanic Acid (Verified Adverse Reaction, Mild, Nausea, 03/07/17) Home Medications Scheduled Diphenhy/Alum/Mag/Sucralfa (Magic Swizzle - Diphenhy/Alum/Mag/Sucralfa), 1 TSP PO Q4H Fentanyl (Fentanyl), 37 MCG TOP CQ72HR Fluconazole (Fluconazole), 100 MG PO QAM Fluoxetine (Prozac), 40 MG PO DAILY Glipizide (Glucotrol Xl), 2.5 MG PO QAM Lisinopril (Zestril), 10 MG PO DAILY Rosuvastatin Calcium (Crestor), 1 TAB PO DAILY Scheduled PRN Lidocaine Hcl (Mouth-Throat) (Lidocaine Viscous), 2 % MT DIRECTED PRN for Moderate Pain Morphine Sulfate (Morphine Sulfate), 5 MG PO AC PRN for Pain Review of Systems Gastrointestinal: Symptoms: WNL GI Comments: "Loose stools";1 BM daily; Oral: Other Oral Symptoms: See below notations Respiratory: Symptoms: Dry Cough Other Respiratory: Cough related to throat tickle/itch sensation;Gags easily Urinary: Symptoms: WNL Skin: Symptoms: No Problems Other Skin Symptoms: skin on left side of neck dallin in color; (Antonella Devi, KIM) Physical Exam Vital Signs Date Time Temp Pulse Resp B/P (MAP) Pulse Ox O2 Delivery O2 Flow Rate FiO2 04/08/17 12:57 37.2 92 12 94/62 97 Fatigue: Mild General Appearance: no apparent distress Eyes: normal inspection, EOMI ENT: hearing grossly normal, + pertinent finding (she continues to have mucositis especially noted on the tongue. There is mild white exudate around ulcerations. There is no ulcerations on the buccal mucosa.) Neck: supple, no adenopathy, thyroid normal, + pertinent finding (mild hyperpigmentation. No wet or dry desquamation.) Respiratory/Chest: lungs clear Cardiovascular: regular rate, rhythm, no gallop, no murmur Abdomen: non tender, soft, + pertinent finding (PEG tube in place. The skin at the opening has no signs of erythema or infection.) Extremities: no pedal edema Neurologic/Psychiatric: no motor/sensory deficits, alert, normal mood/affect Skin: warm/dry Lymphatic: no adenopathy (Antonella Devi PA-C) Laboratory Studies Test 02/03/17 16:35 03/07/17 15:20 03/07/17 15:40 03/08/17 05:49 Immature Granulocyte % (Auto) 0.2 % 0.2 % White Blood Count 8.55 K/uL (4.8-10.8) 4.75 K/uL (4.8-10.8) Red Blood Count 4.79 M/uL (4.2-5.4) 4.36 M/uL (4.2-5.4) Hemoglobin 14.2 g/dL (12.0-16.0) 12.9 g/dL (12.0-16.0) Hematocrit 43.1 % (37-47) 37.5 % (37-47) Mean Corpuscular Volume 90.0 fL (80-100) 86.0 fL (80-100) Mean Corpuscular Hemoglobin 29.6 pg (25-34) 29.6 pg (25-34) Mean Corpuscular Hemoglobin Concent 32.9 g/dl (32-36) 34.4 g/dl (32-36) Platelet Count 219 K/uL (130-400) 217 K/uL (130-400) Mean Platelet Volume 9.4 fL (7.4-10.4) 9.6 fL (7.4-10.4) Neutrophils (%) (Auto) 82.3 % 76.9 % Lymphocytes (%) (Auto) 5.6 % 15.2 % Monocytes (%) (Auto) 10.8 % 6.9 % Eosinophils (%) (Auto) 0.9 % 0.6 % Basophils (%) (Auto) 0.2 % 0.2 % Neutrophils # (Auto) 7.03 K/uL (1.4-6.5) 3.65 K/uL (1.4-6.5) Lymphocytes # (Auto) 0.48 K/uL (1.2-3.4) 0.72 K/uL (1.2-3.4) Monocytes # (Auto) 0.92 K/uL (0.11-0.59) 0.33 K/uL (0.11-0.59) Eosinophils # (Auto) 0.08 K/uL (0-0.5) 0.03 K/uL (0-0.5) Basophils # (Auto) 0.02 K/uL (0-0.2) 0.01 K/uL (0-0.2) Immature Granulocyte # (Auto) 0.02 K/uL (0.00-0.02) 0.01 K/uL (0.00-0.02) Total Bilirubin 0.5 mg/dl (0.2-1) 0.6 mg/dl (0.2-1) Aspartate Amino Transferase (AST) 46 U/L (15-37) 23 U/L (15-37) Alanine Aminotransferase (ALT) 75 U/L (12-78) 33 U/L (12-78) Alkaline Phosphatase 93 U/L (45-117) 74 U/L (45-117) Total Protein 8.1 gm/dl (6.4-8.2) 6.7 gm/dl (6.4-8.2) Albumin 3.9 gm/dl (3.4-5.0) 2.8 gm/dl (3.4-5.0) Globulin 4.2 gm/dl (2.5-4.0) Albumin/Globulin Ratio 0.9 (0.9-2) Prothrombin Time 11.1 SECONDS (9.0-12.0) Prothrombin Time INR 1.0 (0.9-1.1) Direct Bilirubin 0.2 mg/dl (0-0.2) Lipase 66 U/L (73-393) Hepatitis C Antibody Screen NEG (NEG) Phosphorus Level 2.4 mg/dl (2.5-4.9) Magnesium Level 1.8 mg/dl (1.8-2.4) Test 03/09/17 06:17 03/10/17 06:11 White Blood Count 3.51 K/uL (4.8-10.8) 3.93 K/uL (4.8-10.8) Red Blood Count 4.17 M/uL (4.2-5.4) 4.21 M/uL (4.2-5.4) Hemoglobin 11.8 g/dL (12.0-16.0) 12.4 g/dL (12.0-16.0) Hematocrit 36.5 % (37-47) 37.2 % (37-47) Mean Corpuscular Volume 87.5 fL (80-100) 88.4 fL (80-100) Mean Corpuscular Hemoglobin 28.3 pg (25-34) 29.5 pg (25-34) Mean Corpuscular Hemoglobin Concent 32.3 g/dl (32-36) 33.3 g/dl (32-36) RDW Standard Deviation 44.4 fL (36.4-46.3) 46.1 fL (36.4-46.3) RDW Coefficient of Variation 14.4 % (11.5-14.5) 14.5 % (11.5-14.5) Platelet Count 187 K/uL (130-400) 188 K/uL (130-400) Mean Platelet Volume 9.8 fL (7.4-10.4) 10.1 fL (7.4-10.4) Sodium Level 144 mmol/L (136-145) 141 mmol/L (136-145) Potassium Level 4.2 mmol/L (3.5-5.1) 4.6 mmol/L (3.5-5.1) Chloride Level 108 mmol/L (98-107) 103 mmol/L (98-107) Carbon Dioxide Level 27 mmol/L (21-32) 30 mmol/L (21-32) Anion Gap 9.0 mmol/L (3-11) 8.0 mmol/L (3-11) Blood Urea Nitrogen 1 mg/dl (7-18) < 1 mg/dl (7-18) Creatinine 0.37 mg/dl (0.60-1.20) 0.43 mg/dl (0.60-1.20) Est Creatinine Clear Calc Drug Dose 128.3 ml/min 110.0 ml/min Estimated GFR () 134.6 128.1 Estimated GFR (Non- 116.2 110.6 BUN/Creatinine Ratio 2.9 (10-20) (10-20) Random Glucose 74 mg/dl (70-99) 90 mg/dl (70-99) Calcium Level 8.3 mg/dl (8.5-10.1) 8.5 mg/dl (8.5-10.1) (Antonella Devi PA-C) Assessment & Plan Plan: The patient was also seen and examined by Dr. García. There is concern for underlying mild caleb infection. She'll be given another course of Diflucan. We discussed using her PEG tube and having small feedings frequently throughout the day. She'll flush before and after each feeding. A prescription was given for home health nurses to request speech therapy. She continues on the current fentanyl dose. We asked to return to our office in 2 weeks. At that time she'll be due for a refill on sentinel patches. We'll reevaluate the mucositis. If she is improving and having less pain will help to decrease the fentanyl patch dosage. She may call our office if she has any questions or concerns in the interim. She is going to arrange a recheck appointment with her ENT specialist. Recheck future scanning will be discussed at her next visit. (Antonella Devi PA-C) I agree with note created by Antonella Devi PA-C. I reviewed the patient's chart and information with her. I have examined and evaluated the patient. I reviewed relevant clinical information and answered the patient's and/or family' s questions. (Veeral. García MD) Total Time In Follow-Up I spent 25 minutes speaking with the patient and performing examination. I spent 15 minutes reviewing information in completing this note. (Antonella Devi PA-C) I spent 15 minutes examining and counseling the patient. (Veeral. García MD) Copy To Naresh Carvalho M.D.
== END | disposition home or self-care (01) ==
LOC: C.ONC 12:50
PROVIDERS: ATTEND Physician Assistant Medical
DX: Z08 Encounter for follow-up examination after completed treatment for malignant neoplasm (principal); Z92.3 Personal history of irradiation; Z85.810 Personal history of malignant neoplasm of tongue

== ENCOUNTER → 2017-04-23 | Outpatient (CLI) | payer BC ==
[~2017-04-23] MED LIST changes: -HYDR-3983 PO; -MAGIC SWIZZLE PO
[2017-04-23 09:46] VITALS: BP 104/70; PULSE 88; TEMP 36.6; O2SAT 96
--- NOTE | 2017-04-23 12:06 | Radiation Oncology Follow-Up ---
Radiation Oncology Follow-Up Date of Visit Apr 23, 2017. (Antonella Devi PA-C) Reason For Visit Two-week follow-up (Antonella Devi PA-C) Radiation Completion Date 03/05/17 (Antonella Devi PA-C) Diagnosis (1) Tongue cancer Status: Acute Onset Date: 09/26/2015 Location: left lateral tongue Histology Subtype: squamous cell carcinoma Stage: lll Permanent Comment: STAGING: Oral cavity, left lateral tongue, SCC, p16 negative , [id number], stage III Biopsy 03/25/2016 benign Status post partial glosectomy 09/26/15 Status post re-excision for recurrence 11/21/2015 Biopsy 07/01/2016 showing recurrence squamous cell carcinoma Status post partial glossectomy and node dissection 09/29/2016 Status post neck dissection 10/29/2016 Squamous cell carcinoma stage pT1 pN1 M0 Status post completion of radiation therapy 03/05/2017 received 6600 cGy Last Edited By: Antonella Devi on Mar 19, 2017 10:28 (Antonella Devi PA-C) History of Present Illness Ms. Tariq is a 61-year-old female who initially presented to her dentist and had an ulcer on her tongue that was persistent and was not getting better. The patient initiated a biopsy on 03/25/2016 which only revealed acanthotic squamous mucosa. The patient subsequently underwent a partial glossectomy underneath the supervision of Dr. Naresh Carvalho on 09/26/2015 which revealed invasive well-differentiated squamous cell carcinoma; the margins were initially positive however all the margins were reexcised during the procedure and were ultimately negative. The tumor specimen measured up to 4 mm in the greatest dimension in the thickness was 1.4 mm and was grade 1. Unfortunately, the patient developed a recurrence and underwent a reexcision on 11/21/2015 which confirmed recurrent invasive squamous cell carcinoma and high- grade dysplasia with close margins measuring 0.3 mm of the deep margin; All the other peripheral margins were negative. The patient continued to do relatively well until there were concerning findings along the left lateral tongue and the patient underwent a MRI of the head and neck on 08/04/2016 which revealed no evidence of malignancy. The patient had a repeat biopsy on 07/01/2016 which revealed ulcerated and infiltrating moderately differentiated squamous cell carcinoma that is p16 negative. The patient underwent a left partial glossectomy with sentinel lymph node biopsy on 09/29/2016 which revealed moderately differentiated invasive squamous cell carcinoma that measured 1.2 cm in the greatest dimension. The tumor thickness was 6 mm and it was grade 2. There is no evidence of lymphovascular space invasion or perineural invasion. 3 sentinel lymph nodes were also excised at the time of surgery and 1 lymph node Kienbck positive for metastatic squamous cell carcinoma with no evidence of extracapsular extension. The patient was brought back to the operating room on 10/29/2016 for a left neck dissection. In total, 28 lymph nodes were excised and all were negative for metastatic squamous cell carcinoma. The patient was seen in consultation by Dr. Hernandez from radiation oncology at [facility]. Dr. Hernandez recommended adjuvant radiation therapy to the postoperative site, left and right necks. At the time of her radiation oncology consultation, there was concern for potential recurrence along the left lateral tongue in the patient was referred back to Dr. Carvalho who felt it was most likely related to healthy granulation tissue. The patient wanted to consider a second opinion consultation so we are now seeing the patient in consultation. Overall, the patient is doing relatively well. She currently has no pain or difficulty swallowing. She is doing relatively well overall. Status post completion of radiation therapy 03/05/2017 received 6600 cGy. (Antonella Devi PA-C) Interim History She continues to have pain of the posterior left tongue and throat. She rates this at a level of 5. She is using fentanyl patches. She uses a 25 g patch and a 12 g patch. These are now being supplied by her family physician. She did gain 2 pounds over the past 2 weeks. She is using 3 cartons of nutrition per day. The exudate of the tongue has improved. There is no foul odor. She continues to have thick saliva. She is now having speech therapy through home health. She did have an episode of reflux one evening. She is been trying to keep upright for one hour after her feedings to prevent any problems with reflux. She has developed some swelling of the left face and under her chin. There are no issues with her skin. This healed without difficulty. (Antonella Devi PA-C) Allergies Coded Allergies: Bupropion (Verified Allergy, Mild, Rash, 03/07/17) Erythromycin (Verified Allergy, Unknown, Unknown, 03/07/17) Metformin (Verified Allergy, Unknown, Rash, 03/07/17) Amoxicillin (Verified Adverse Reaction, Mild, Nausea, 03/07/17) Clavulanic Acid (Verified Adverse Reaction, Mild, Nausea, 03/07/17) Home Medications Scheduled Diphenhy/Alum/Mag/Sucralfa (Magic Swizzle - Diphenhy/Alum/Mag/Sucralfa), 1 TSP PO Q4H Fentanyl (Fentanyl), 25 MCG TOP CQ72HR Fentanyl (Duragesic), 12 MCG TD CQ72HR Fluconazole (Fluconazole), 100 MG PO QAM Rosuvastatin Calcium (Crestor), 1 TAB PO DAILY Scheduled PRN Lidocaine Hcl (Mouth-Throat) (Lidocaine Viscous), 2 % MT DIRECTED PRN for Moderate Pain Morphine Sulfate (Morphine Sulfate), 5 MG PO AC PRN for Pain Trazodone Hcl (Trazodone), 25 MG PO HS PRN for Insomnia Review of Systems Gastrointestinal: Symptoms: WNL Oral: Symptoms: Scant Saliva/Dry Mouth, Thick/Viscid/Mucid Saliva Other Oral Symptoms: Reports thickness of saliva has improved; Respiratory: Symptoms: Dry Cough, Productive Cough Sputum Character: Clear sputum/mucus/phlegm Urinary: Symptoms: WNL Skin: Symptoms: No Problems (Antonella Devi PA-C) Physical Exam Vital Signs Date Time Temp Pulse Resp B/P (MAP) Pulse Ox O2 Delivery O2 Flow Rate FiO2 04/23/17 09:46 36.6 88 12 104/70 96 Fatigue: Mild General Appearance: + pertinent finding (there is submental edema. Minimal swelling of the face. Her speech continues to improve.) Eyes: normal inspection, EOMI ENT: hearing grossly normal, + pertinent finding (the exudate of the tongue continues to improve. The ulcerations have cleared other than the left lateral tongue. The buccal mucosa is healed. There is limited side to side motion of her tongue.) Neck: supple, no adenopathy Respiratory/Chest: lungs clear, no respiratory distress, no accessory muscle use Cardiovascular: regular rate, rhythm, no gallop, no murmur Abdomen: non tender, soft, no organomegaly Extremities: no pedal edema Neurologic/Psychiatric: no motor/sensory deficits, alert, normal mood/affect Skin: warm/dry (Antonella Devi PA-C) Laboratory Studies Test 02/03/17 16:35 03/07/17 15:20 03/07/17 15:40 03/08/17 05:49 Immature Granulocyte % (Auto) 0.2 % 0.2 % White Blood Count 8.55 K/uL (4.8-10.8) 4.75 K/uL (4.8-10.8) Red Blood Count 4.79 M/uL (4.2-5.4) 4.36 M/uL (4.2-5.4) Hemoglobin 14.2 g/dL (12.0-16.0) 12.9 g/dL (12.0-16.0) Hematocrit 43.1 % (37-47) 37.5 % (37-47) Mean Corpuscular Volume 90.0 fL (80-100) 86.0 fL (80-100) Mean Corpuscular Hemoglobin 29.6 pg (25-34) 29.6 pg (25-34) Mean Corpuscular Hemoglobin Concent 32.9 g/dl (32-36) 34.4 g/dl (32-36) Platelet Count 219 K/uL (130-400) 217 K/uL (130-400) Mean Platelet Volume 9.4 fL (7.4-10.4) 9.6 fL (7.4-10.4) Neutrophils (%) (Auto) 82.3 % 76.9 % Lymphocytes (%) (Auto) 5.6 % 15.2 % Monocytes (%) (Auto) 10.8 % 6.9 % Eosinophils (%) (Auto) 0.9 % 0.6 % Basophils (%) (Auto) 0.2 % 0.2 % Neutrophils # (Auto) 7.03 K/uL (1.4-6.5) 3.65 K/uL (1.4-6.5) Lymphocytes # (Auto) 0.48 K/uL (1.2-3.4) 0.72 K/uL (1.2-3.4) Monocytes # (Auto) 0.92 K/uL (0.11-0.59) 0.33 K/uL (0.11-0.59) Eosinophils # (Auto) 0.08 K/uL (0-0.5) 0.03 K/uL (0-0.5) Basophils # (Auto) 0.02 K/uL (0-0.2) 0.01 K/uL (0-0.2) Immature Granulocyte # (Auto) 0.02 K/uL (0.00-0.02) 0.01 K/uL (0.00-0.02) Total Bilirubin 0.5 mg/dl (0.2-1) 0.6 mg/dl (0.2-1) Aspartate Amino Transferase (AST) 46 U/L (15-37) 23 U/L (15-37) Alanine Aminotransferase (ALT) 75 U/L (12-78) 33 U/L (12-78) Alkaline Phosphatase 93 U/L (45-117) 74 U/L (45-117) Total Protein 8.1 gm/dl (6.4-8.2) 6.7 gm/dl (6.4-8.2) Albumin 3.9 gm/dl (3.4-5.0) 2.8 gm/dl (3.4-5.0) Globulin 4.2 gm/dl (2.5-4.0) Albumin/Globulin Ratio 0.9 (0.9-2) Prothrombin Time 11.1 SECONDS (9.0-12.0) Prothrombin Time INR 1.0 (0.9-1.1) Direct Bilirubin 0.2 mg/dl (0-0.2) Lipase 66 U/L (73-393) Hepatitis C Antibody Screen NEG (NEG) Phosphorus Level 2.4 mg/dl (2.5-4.9) Magnesium Level 1.8 mg/dl (1.8-2.4) Test 03/09/17 06:17 03/10/17 06:11 White Blood Count 3.51 K/uL (4.8-10.8) 3.93 K/uL (4.8-10.8) Red Blood Count 4.17 M/uL (4.2-5.4) 4.21 M/uL (4.2-5.4) Hemoglobin 11.8 g/dL (12.0-16.0) 12.4 g/dL (12.0-16.0) Hematocrit 36.5 % (37-47) 37.2 % (37-47) Mean Corpuscular Volume 87.5 fL (80-100) 88.4 fL (80-100) Mean Corpuscular Hemoglobin 28.3 pg (25-34) 29.5 pg (25-34) Mean Corpuscular Hemoglobin Concent 32.3 g/dl (32-36) 33.3 g/dl (32-36) RDW Standard Deviation 44.4 fL (36.4-46.3) 46.1 fL (36.4-46.3) RDW Coefficient of Variation 14.4 % (11.5-14.5) 14.5 % (11.5-14.5) Platelet Count 187 K/uL (130-400) 188 K/uL (130-400) Mean Platelet Volume 9.8 fL (7.4-10.4) 10.1 fL (7.4-10.4) Sodium Level 144 mmol/L (136-145) 141 mmol/L (136-145) Potassium Level 4.2 mmol/L (3.5-5.1) 4.6 mmol/L (3.5-5.1) Chloride Level 108 mmol/L (98-107) 103 mmol/L (98-107) Carbon Dioxide Level 27 mmol/L (21-32) 30 mmol/L (21-32) Anion Gap 9.0 mmol/L (3-11) 8.0 mmol/L (3-11) Blood Urea Nitrogen 1 mg/dl (7-18) < 1 mg/dl (7-18) Creatinine 0.37 mg/dl (0.60-1.20) 0.43 mg/dl (0.60-1.20) Est Creatinine Clear Calc Drug Dose 128.3 ml/min 110.0 ml/min Estimated GFR () 134.6 128.1 Estimated GFR (Non- 116.2 110.6 BUN/Creatinine Ratio 2.9 (10-20) (10-20) Random Glucose 74 mg/dl (70-99) 90 mg/dl (70-99) Calcium Level 8.3 mg/dl (8.5-10.1) 8.5 mg/dl (8.5-10.1) (Antonella Devi PA-C) Assessment & Plan Plan: She was seen and examined by Dr. García. She may use the nystatin to help prevent any further thrush. I've given her prescription for lymphedema therapy. She will try to have this arranged through her home health nurses. She will schedule follow-up appointment with her ENT specialist. She'll continue the tube feedings. She'll be careful to remain upright for 2 hours after feedings. Today we completed a cancer survivorship care plan. A copy of the document was given to the patient. We asked her to return to our office in one month. She may call if she has any questions or concerns in the interim. She will need to have full intake by mouth before removal of the PEG tube. She will need to complete her treatment in evaluations by speech therapy. (Antonella Devi PA-C) I agree with note created by Antonella Devi PA-C. I reviewed the patient's chart and information with her. I have examined and evaluated the patient. I reviewed relevant clinical information and answered the patient's and/or family' s questions. (Veeral. García MD) Total Time In Follow-Up I spent 20 minutes speaking to the patient and performing examination. I spent 15 minutes reviewing information in completing this note. AK (Antonella Devi PA-C) I spent 15 minutes examining and counseling the patient. (Veeral. García MD) Copy To Naresh Carvalho M.D.; Lucie Gomez MD
== END | disposition home or self-care (01) ==
LOC: C.ONC 09:34
PROVIDERS: ATTEND Physician Assistant Medical
DX: Z08 Encounter for follow-up examination after completed treatment for malignant neoplasm (principal); Z92.3 Personal history of irradiation; Z85.810 Personal history of malignant neoplasm of tongue

== ENCOUNTER → 2017-05-25 | Outpatient (CLI) | payer BC ==
[~2017-05-25] MED LIST changes: -FLUO40CA8 PO; -GLIP1TAB60 PO; -LISI-461 PO
[2017-05-25 14:10] VITALS: BP 105/71; PULSE 96; TEMP 37; O2SAT 96
[2017-05-25 15:29] LABS: COMPLETE YES; EOS % 1.1 %; HEMATOCRIT 40.6 % (37-47); IG% 0.2 %; LYMPH % 13.8 %; LYMPH ABS # 0.78 K/uL (1.2-3.4); MEAN PLATELET VOLUME 10.3 fL (7.4-10.4); MONO % 7.1 %; NEUT % 77.8 %; PLATELET COUNT 265 K/uL (130-400); RED BLOOD COUNT 4.46 M/uL (4.2-5.4); WHITE BLOOD COUNT 5.65 K/uL (4.8-10.8)
[2017-05-25 15:50] LABS: ALT/SGPT 28 U/L (12-78); BLOOD UREA NITROGEN 22 mg/dl (7-18); BUN/CREATININE RATIO 37.1 (10-20); CALCIUM 9.5 mg/dl (8.5-10.1); CARBON DIOXIDE 32 mmol/L (21-32); CHLORIDE 99 mmol/L (98-107); CREATININE 0.58 mg/dl (0.60-1.20); GLUCOSE 100 mg/dl (70-99); MAGNESIUM 2.4 mg/dl (1.8-2.4); POTASSIUM 4.2 mmol/L (3.5-5.1); SODIUM 137 mmol/L (136-145)
[2017-05-25 16:01] LABS: ALB/GLOB RATIO 0.9 (0.9-2); ALKALINE PHOSPHATASE 77 U/L (45-117); AST/SGOT 25 U/L (15-37); THYROID STIMULATING HORMONE 0.682 uIu/ml (0.300-4.500)
--- NOTE | 2017-05-25 16:28 | Radiation Oncology Follow-Up ---
Radiation Oncology Follow-Up Date of Visit May 25, 2017. Reason For Visit One-month follow-up since last visit. Radiation was completed 03/05/2017. Radiation Completion Date 03/05/17 Diagnosis (1) Tongue cancer Status: Acute Onset Date: 09/26/2015 Location: left lateral tongue Histology Subtype: squamous cell carcinoma Stage: lll Permanent Comment: STAGING: Oral cavity, left lateral tongue, SCC, p16 negative , [id number], stage III Biopsy 03/25/2016 benign Status post partial glosectomy 09/26/15 Status post re-excision for recurrence 11/21/2015 Biopsy 07/01/2016 showing recurrence squamous cell carcinoma Status post partial glossectomy and node dissection 09/29/2016 Status post neck dissection 10/29/2016 Squamous cell carcinoma stage pT1 pN1 M0 Status post completion of radiation therapy 03/05/2017 received 6600 cGy Last Edited By: Antonella Devi on Mar 19, 2017 10:28 History of Present Illness Ms. Tariq is a 61-year-old female who initially presented to her dentist and had an ulcer on her tongue that was persistent and was not getting better. The patient initiated a biopsy on 03/25/2016 which only revealed acanthotic squamous mucosa. The patient subsequently underwent a partial glossectomy underneath the supervision of Dr. Naresh Carvalho on 09/26/2015 which revealed invasive well-differentiated squamous cell carcinoma; the margins were initially positive however all the margins were reexcised during the procedure and were ultimately negative. The tumor specimen measured up to 4 mm in the greatest dimension in the thickness was 1.4 mm and was grade 1. Unfortunately, the patient developed a recurrence and underwent a reexcision on 11/21/2015 which confirmed recurrent invasive squamous cell carcinoma and high- grade dysplasia with close margins measuring 0.3 mm of the deep margin; All the other peripheral margins were negative. The patient continued to do relatively well until there were concerning findings along the left lateral tongue and the patient underwent a MRI of the head and neck on 08/04/2016 which revealed no evidence of malignancy. The patient had a repeat biopsy on 07/01/2016 which revealed ulcerated and infiltrating moderately differentiated squamous cell carcinoma that is p16 negative. The patient underwent a left partial glossectomy with sentinel lymph node biopsy on 09/29/2016 which revealed moderately differentiated invasive squamous cell carcinoma that measured 1.2 cm in the greatest dimension. The tumor thickness was 6 mm and it was grade 2. There is no evidence of lymphovascular space invasion or perineural invasion. 3 sentinel lymph nodes were also excised at the time of surgery and 1 lymph node Kienbck positive for metastatic squamous cell carcinoma with no evidence of extracapsular extension. The patient was brought back to the operating room on 10/29/2016 for a left neck dissection. In total, 28 lymph nodes were excised and all were negative for metastatic squamous cell carcinoma. The patient was seen in consultation by Dr. Hernandez from radiation oncology at [facility]. Dr. Hernandez recommended adjuvant radiation therapy to the postoperative site, left and right necks. At the time of her radiation oncology consultation, there was concern for potential recurrence along the left lateral tongue in the patient was referred back to Dr. Carvalho who felt it was most likely related to healthy granulation tissue. The patient wanted to consider a second opinion consultation so we are now seeing the patient in consultation. Overall, the patient is doing relatively well. She currently has no pain or difficulty swallowing. She is doing relatively well overall. Status post completion of radiation therapy 03/05/2017 received 6600 cGy. Interim History She continues to take little by mouth over the past month. She is using 3 cans of nutrition per day. She is going to try to increase this to 4. Today was a 2 pound weight loss. Overall her energy levels have improved. She continues to have difficulty with moving the full bolus around in her mouth. She is following with speech therapy. She also sees the lymphedema clinic for the submental edema. She is switching to [facility]. Today she is a pain level of 2-3. This is improved from her last visit. She continues on the same dose of pain medication. This is beam prescribed to her PCP. The quality of taste continues to be poor. This is slightly improved from the last visit. In general she feels fatigued. Though appears up improved in general. Allergies Coded Allergies: Bupropion (Verified Allergy, Mild, Rash, 03/07/17) Erythromycin (Verified Allergy, Unknown, Unknown, 03/07/17) Metformin (Verified Allergy, Unknown, Rash, 03/07/17) Amoxicillin (Verified Adverse Reaction, Mild, Nausea, 03/07/17) Clavulanic Acid (Verified Adverse Reaction, Mild, Nausea, 5/21/17) Home Medications Scheduled Diphenhy/Alum/Mag/Sucralfa (Magic Swizzle - Diphenhy/Alum/Mag/Sucralfa), 1 TSP PO Q4H Fentanyl (Fentanyl), 25 MCG TOP CQ72HR Fentanyl (Duragesic), 12 MCG TD CQ72HR Fluconazole (Fluconazole), 100 MG PO QAM Scheduled PRN Lidocaine Hcl (Mouth-Throat) (Lidocaine Viscous), 2 % MT DIRECTED PRN for Moderate Pain Morphine Sulfate (Morphine Sulfate), 5 MG PO AC PRN for Pain Trazodone Hcl (Trazodone), 25 MG PO HS PRN for Insomnia Review of Systems Gastrointestinal: Symptoms: WNL Oral: Symptoms: Scant Saliva/Dry Mouth Other Oral Symptoms: Altered taste;Belches frequently - feeding comes up in esophagus; Respiratory: Sputum Character: Hiccoughs frequently Other Respiratory: Phlegm collects in back of throat - coughs this up Urinary: Symptoms: WNL Skin: Symptoms: No Problems Physical Exam Vital Signs Date Time Temp Pulse Resp B/P (MAP) Pulse Ox O2 Delivery O2 Flow Rate FiO2 05/25/17 14:10 37.0 96 16 105/71 96 Fatigue: None General Appearance: no apparent distress Eyes: normal inspection, EOMI ENT: normal ENT inspection, hearing grossly normal, + pertinent finding ( postoperative changes of the left tongue. Submental edema postop changes of the neck.) Neck: no adenopathy, thyroid normal Respiratory/Chest: lungs clear, no respiratory distress, no accessory muscle use Cardiovascular: regular rate, rhythm, no gallop, no murmur Extremities: no pedal edema Neurologic/Psychiatric: no motor/sensory deficits, alert, normal mood/affect Skin: warm/dry Laboratory Studies Test 03/07/17 15:20 03/07/17 15:40 03/08/17 05:49 03/09/17 06:17 Prothrombin Time 11.1 SECONDS (9.0-12.0) Prothrombin Time INR 1.0 (0.9-1.1) Immature Granulocyte % (Auto) 0.2 % White Blood Count 4.75 K/uL (4.8-10.8) Red Blood Count 4.36 M/uL (4.2-5.4) Hemoglobin 12.9 g/dL (12.0-16.0) Hematocrit 37.5 % (37-47) Mean Corpuscular Volume 86.0 fL (80-100) Mean Corpuscular Hemoglobin 29.6 pg (25-34) Mean Corpuscular Hemoglobin Concent 34.4 g/dl (32-36) Platelet Count 217 K/uL (130-400) Mean Platelet Volume 9.6 fL (7.4-10.4) Neutrophils (%) (Auto) 76.9 % Lymphocytes (%) (Auto) 15.2 % Monocytes (%) (Auto) 6.9 % Eosinophils (%) (Auto) 0.6 % Basophils (%) (Auto) 0.2 % Neutrophils # (Auto) 3.65 K/uL (1.4-6.5) Lymphocytes # (Auto) 0.72 K/uL (1.2-3.4) Monocytes # (Auto) 0.33 K/uL (0.11-0.59) Eosinophils # (Auto) 0.03 K/uL (0-0.5) Basophils # (Auto) 0.01 K/uL (0-0.2) Immature Granulocyte # (Auto) 0.01 K/uL (0.00-0.02) Total Bilirubin 0.6 mg/dl (0.2-1) Direct Bilirubin 0.2 mg/dl (0-0.2) Aspartate Amino Transferase (AST) 23 U/L (15-37) Alanine Aminotransferase (ALT) 33 U/L (12-78) Alkaline Phosphatase 74 U/L (45-117) Total Protein 6.7 gm/dl (6.4-8.2) Albumin 2.8 gm/dl (3.4-5.0) Lipase 66 U/L (73-393) Hepatitis C Antibody Screen NEG (NEG) Phosphorus Level 2.4 mg/dl (2.5-4.9) Magnesium Level 1.8 mg/dl (1.8-2.4) Est Creatinine Clear Calc Drug Dose 128.3 ml/min Test 03/10/17 06:11 05/25/17 15:17 White Blood Count 3.93 K/uL (4.8-10.8) 5.65 K/uL (4.8-10.8) Red Blood Count 4.21 M/uL (4.2-5.4) 4.46 M/uL (4.2-5.4) Hemoglobin 12.4 g/dL (12.0-16.0) 13.4 g/dL (12.0-16.0) Hematocrit 37.2 % (37-47) 40.6 % (37-47) Mean Corpuscular Volume 88.4 fL (80-100) 91.0 fL (80-100) Mean Corpuscular Hemoglobin 29.5 pg (25-34) 30.0 pg (25-34) Mean Corpuscular Hemoglobin Concent 33.3 g/dl (32-36) 33.0 g/dl (32-36) RDW Standard Deviation 46.1 fL (36.4-46.3) 42.9 fL (36.4-46.3) RDW Coefficient of Variation 14.5 % (11.5-14.5) 12.9 % (11.5-14.5) Platelet Count 188 K/uL (130-400) 265 K/uL (130-400) Mean Platelet Volume 10.1 fL (7.4-10.4) 10.3 fL (7.4-10.4) Sodium Level 141 mmol/L (136-145) 137 mmol/L (136-145) Potassium Level 4.6 mmol/L (3.5-5.1) 4.2 mmol/L (3.5-5.1) Chloride Level 103 mmol/L (98-107) 99 mmol/L (98-107) Carbon Dioxide Level 30 mmol/L (21-32) 32 mmol/L (21-32) Anion Gap 8.0 mmol/L (3-11) 6.0 mmol/L (3-11) Blood Urea Nitrogen < 1 mg/dl (7-18) 22 mg/dl (7-18) Creatinine 0.43 mg/dl (0.60-1.20) 0.58 mg/dl (0.60-1.20) Est Creatinine Clear Calc Drug Dose 110.0 ml/min Estimated GFR () 128.1 116.1 Estimated GFR (Non- 110.6 100.2 BUN/Creatinine Ratio (10-20) 37.1 (10-20) Random Glucose 90 mg/dl (70-99) 100 mg/dl (70-99) Calcium Level 8.5 mg/dl (8.5-10.1) 9.5 mg/dl (8.5-10.1) Neutrophils (%) (Auto) 77.8 % Lymphocytes (%) (Auto) 13.8 % Monocytes (%) (Auto) 7.1 % Eosinophils (%) (Auto) 1.1 % Basophils (%) (Auto) 0.0 % Neutrophils # (Auto) 4.40 K/uL (1.4-6.5) Lymphocytes # (Auto) 0.78 K/uL (1.2-3.4) Monocytes # (Auto) 0.40 K/uL (0.11-0.59) Eosinophils # (Auto) 0.06 K/uL (0-0.5) Basophils # (Auto) 0.00 K/uL (0-0.2) Immature Granulocyte % (Auto) 0.2 % Immature Granulocyte # (Auto) 0.01 K/uL (0.00-0.02) Magnesium Level 2.4 mg/dl (1.8-2.4) Total Bilirubin 0.2 mg/dl (0.2-1) Aspartate Amino Transferase (AST) 25 U/L (15-37) Alanine Aminotransferase (ALT) 28 U/L (12-78) Alkaline Phosphatase 77 U/L (45-117) Total Protein 7.5 gm/dl (6.4-8.2) Albumin 3.6 gm/dl (3.4-5.0) Globulin 3.9 gm/dl (2.5-4.0) Albumin/Globulin Ratio 0.9 (0.9-2) Thyroid Stimulating Hormone (TSH) 0.682 uIu/ml (0.300-4.500) Assessment & Plan Plan: The patient's also seen and examined by Dr. García. We have discussed beginning to decrease the pain medication. This may be a tubing to some of her side effects of fatigue. This is been provided by her PCP we have asked her to review this with the PCP to discuss a slow taper off of pain medication. She continues with speech therapy as well as physical therapy for the lymphedema. She'll need to continue to slowly increase fluid intake by mouth. She has an appointment with the ENT specialist tomorrow. We have asked her to return to our office in 2 months. I agree with note created by Antonella Devi PA-C. I reviewed the patient's chart and information with her. I have examined and evaluated the patient. I reviewed relevant clinical information and answered the patient's and/or family' s questions. Total Time In Follow-Up I spent 20 minutes speaking to the patient forming examination. I spent 15 minutes reviewing information in completing this note. AK I spent 15 minutes examining and counseling the patient. BLOW UP OPERATOR Copy To Lucie Blank; Naresh Carvalho M.D.
== END | disposition home or self-care (01) ==
LOC: C.ONC 14:02
PROVIDERS: ATTEND Physician Assistant Medical
DX: Z08 Encounter for follow-up examination after completed treatment for malignant neoplasm (principal); Z92.3 Personal history of irradiation; Z85.810 Personal history of malignant neoplasm of tongue

== ENCOUNTER → 2017-07-05 | Day surgery (SDC) | payer BC ==
[2017-06-29 11:33] VITALS: BMI 21.0
[~2017-07-05] VITALS: Ht 152.4 cm; Wt 49.5 kg
[~2017-07-05] MED LIST changes: -FNTTP25 TOP; -LIDO2SOL19 MT; -MAGIC1 PO; -RXNS5 PO; -[UNRECOGNIZED DRUG - CODE] PO
[2017-07-05 09:43] VITALS: Ht 152.4 cm; Wt 49.5 kg
--- NOTE | 2017-07-05 10:09 | Endo History and Physical ---
History & Physical Date of Service: Jul 05, 2017. Chief Complaint: PEG TUBE NO LONGER NEEDED Referring Physician: Rosamaria History of Present Illness 61 yo CF who presents for PEG Tube removal as she no longer needs it for feedings. Past Surgical History Hx Cardiac Surgery: No Hx Internal Defibrillator: No Hx Pacemaker: No Hx Abdominal Surgery: Yes (UTERINE TUMOR REMOVAL) Hx of Implantable Prosthesis: No Hx Post-Op Nausea and Vomiting: No Hx Cancer Surgery: Yes (SQUAMOUS CELL REMOVAL FROM TONGUE X3) Hx Thoracic Surgery: No Hx Orthopedic: Yes (CERVICAL DISECTION 09/2016 AND 10/2016 (FULL ROM)) Hx Urinary Tract Surgery: No Family History None Social History Smoking Status: Former Smoker Hx Substance Use: No Hx Alcohol Use: No Allergies Coded Allergies: Bupropion (Verified Allergy, Mild, Rash, 07/05/17) Erythromycin (Verified Allergy, Unknown, NAUSEA, 07/05/17) Metformin (Verified Allergy, Unknown, Rash, 07/05/17) Amoxicillin (Verified Adverse Reaction, Mild, Nausea, 07/05/17) Clavulanic Acid (Verified Adverse Reaction, Mild, Nausea, 07/05/17) Current Medications Reported Home Medications Medications Dose Route/Sig Max Daily Dose Days Date Category Morphine Sulfate 10 Mg/0.5 Ml Soln 5 Mg PO Q4H PRN 06/29/17 Reported Trazodone (Trazodone HCl) 50 Mg Tab 25 Mg PO HS PRN 04/23/17 Reported Vital Signs Weight (Kilograms): 49.55 Height (Feet): 5 Height (Inches): 0 Date Time Temp Pulse Resp B/P (MAP) Pulse Ox O2 Delivery O2 Flow Rate FiO2 07/05/17 09:48 36.8 88 16 124/81 (95) 99 Room Air Physical Exam General Appearance: WD/WN, no apparent distress Respiratory/Chest: Auscultation: breath sounds normal Cardiovascular: Heart Auscultation: RRR Abdomen: Bowel Sounds: normal Inspection & Palpation: soft, non-distended, no tenderness, guarding & rebound Assessment and Plan Assessment: 61 yo CF who presents for PEG Tube removal as she no longer needs it for feedings. Plan: Proceed with PEG Tube Removal
[2017-07-05 10:15] VITALS: BP 119/76; PULSE 80; TEMP 36.5; O2SAT 99
--- NOTE | 2017-07-05 10:15 | Discharge Instructions ---
Endoscopy Patient Instructions Date / Procedure Performed Jul 05, 2017. Percutaneous Endoscopic Gastrotomy (P.E.G) Tube Replacement / Removal Allergy Information Coded Allergies: Bupropion (Verified Allergy, Mild, Rash, 07/05/17) Erythromycin (Verified Allergy, Unknown, NAUSEA, 07/05/17) Metformin (Verified Allergy, Unknown, Rash, 07/05/17) Amoxicillin (Verified Adverse Reaction, Mild, Nausea, 07/05/17) Clavulanic Acid (Verified Adverse Reaction, Mild, Nausea, 07/05/17) Home Medication List Scheduled PRN Morphine Sulfate (Morphine Sulfate), 5 MG PO Q4H PRN for Pain Trazodone Hcl (Trazodone), 25 MG PO HS PRN for Insomnia Discharge Date / Findings Jul 05, 2017. Successful removal of PEG Tube Medication Instructions OK to resume all medications today as prescribed Reported Home Medications Medications Dose Route/Sig Max Daily Dose Days Date Category Morphine Sulfate 10 Mg/0.5 Ml Soln 5 Mg PO Q4H PRN 06/29/17 Reported Trazodone (Trazodone HCl) 50 Mg Tab 25 Mg PO HS PRN 04/23/17 Reported Provider Instructions Activity Recommendations * Resume regular activity . Diet Recommendations * Resume previous diet. * Advance diet as tolerated. Medication Instructions * Resume usual medications. Follow-Up Information Follow-up with PCP as scheduled Anesthesia Information * Rest quietly at home today, then you can be up and about tomorrow. Symptoms Additional Instructions If you experience any of the following symptoms after your procedure seek medical attention at your closest Emergency Room and/or call your primary care physician immediately: * Severe abdominal pain or bloating * Fever greater than 101.1 degrees within 24 hours after the procedure * Uncontrolled nausea and vomiting Avoid all tobacco products. If you need help to stop smoking, call [place]'s FREE QUIT LINE at [phone]. Your discharge instructions were prepared by provider Scott Baker. Patient Instructions Signature Page Cristine Tariq Patient (or Guardian) Signature/Date: I have read and understand the instructions given to me by my caregivers. Caregiver/RN/Doctor Signature/Date: The above-named patient and/or guardian has received patient instructions on this date. + Original Patient Signature Page (only) stays with chart. Please make copy for patient.
--- NOTE | 2017-07-05 17:00 | GI REPORT ---
Procedure Date: 07/05/2017 2:19 PM Procedure: Non-endoscopic Tube Procedure Indications: Remove PEG tube (no longer needed) Medicines: None Complications: No immediate complications. Estimated Blood Loss: Estimated blood loss: none. Procedure: After obtaining informed consent, the site was prepped and the procedure was performed.The procedure was accomplished without difficulty. The patient tolerated the procedure well. Findings: Due to an ability to resume oral intake, the patient no longer requires the gastrostomy tube. The gastrostomy tube was no longer necessary and required removal. The existing PEG site was cleaned. The existing PEG balloon was deflated and by using traction, removal was easily accomplished. Impression: - The gastrostomy tube was removed because it was no longer necessary. - No specimens collected. Recommendation: - Advance diet as tolerated today. Scott Baker, DO 07/05/2017 5:00:20 PM This report has been signed electronically. Note Initiated On: 07/05/2017 2:19 PM I attest to the content of the Intraoperative Record and orders documented therein, exceptions below
== END | disposition home or self-care (01) ==
LOC: C.GI 09:31
PROVIDERS: ATTEND Internal Medicine
DX: Z43.1 Encounter for attention to gastrostomy (principal); Z87.891 Personal history of nicotine dependence

== ENCOUNTER → 2017-07-28 | Outpatient (CLI) | payer BC ==
[~2017-07-28] MED LIST changes: -FENT25DI10 TD
[2017-07-28 13:06] VITALS: BP 121/76; PULSE 102; TEMP 36.3; O2SAT 100
--- NOTE | 2017-07-28 14:50 | Radiation Oncology Follow-Up ---
Radiation Oncology Follow-Up Date of Visit Jul 28, 2017. Reason For Visit Two-month follow-up Radiation Completion Date 03/05/17 Diagnosis (1) Tongue cancer Status: Acute Onset Date: 09/26/2015 Location: left lateral tongue Histology Subtype: squamous cell carcinoma Stage: lll Permanent Comment: STAGING: Oral cavity, left lateral tongue, SCC, p16 negative , [id number], stage III Biopsy 03/25/2016 benign Status post partial glosectomy 09/26/15 Status post re-excision for recurrence 11/21/2015 Biopsy 07/01/2016 showing recurrence squamous cell carcinoma Status post partial glossectomy and node dissection 09/29/2016 Status post neck dissection 10/29/2016 Squamous cell carcinoma stage pT1 pN1 M0 Status post completion of radiation therapy 03/05/2017 received 6600 cGy Last Edited By: Antonella Devi on Mar 19, 2017 10:28 History of Present Illness Ms. Tariq is a 61-year-old female who initially presented to her dentist and had an ulcer on her tongue that was persistent and was not getting better. The patient initiated a biopsy on 03/25/2016 which only revealed acanthotic squamous mucosa. The patient subsequently underwent a partial glossectomy underneath the supervision of Dr. Naresh Carvalho on 09/26/2015 which revealed invasive well-differentiated squamous cell carcinoma; the margins were initially positive however all the margins were reexcised during the procedure and were ultimately negative. The tumor specimen measured up to 4 mm in the greatest dimension in the thickness was 1.4 mm and was grade 1. Unfortunately, the patient developed a recurrence and underwent a reexcision on 11/21/2015 which confirmed recurrent invasive squamous cell carcinoma and high- grade dysplasia with close margins measuring 0.3 mm of the deep margin; All the other peripheral margins were negative. The patient continued to do relatively well until there were concerning findings along the left lateral tongue and the patient underwent a MRI of the head and neck on 08/04/2016 which revealed no evidence of malignancy. The patient had a repeat biopsy on 07/01/2016 which revealed ulcerated and infiltrating moderately differentiated squamous cell carcinoma that is p16 negative. The patient underwent a left partial glossectomy with sentinel lymph node biopsy on 09/29/2016 which revealed moderately differentiated invasive squamous cell carcinoma that measured 1.2 cm in the greatest dimension. The tumor thickness was 6 mm and it was grade 2. There is no evidence of lymphovascular space invasion or perineural invasion. 3 sentinel lymph nodes were also excised at the time of surgery and 1 lymph node Kienbck positive for metastatic squamous cell carcinoma with no evidence of extracapsular extension. The patient was brought back to the operating room on 10/29/2016 for a left neck dissection. In total, 28 lymph nodes were excised and all were negative for metastatic squamous cell carcinoma. The patient was seen in consultation by Dr. Hernandez from radiation oncology at [facility]. Dr. Hernandez recommended adjuvant radiation therapy to the postoperative site, left and right necks. At the time of her radiation oncology consultation, there was concern for potential recurrence along the left lateral tongue in the patient was referred back to Dr. Carvalho who felt it was most likely related to healthy granulation tissue. The patient wanted to consider a second opinion consultation so we are now seeing the patient in consultation. Overall, the patient is doing relatively well. She currently has no pain or difficulty swallowing. She is doing relatively well overall. Status post completion of radiation therapy 03/05/2017 received 6600 cGy. Interim History She continues to have slow improvement over the past 2 months. She does have difficulty with taste. There issues with dryness of the food, texture, and burning if spicy. She has difficulty with eating salads. Previously weight discussed that there was difficulty with moving the food bolus around in her mouth. This continues to be an issue but is somewhat improved. She was taking 100% of food and liquids by mouth. She had called our office and requesting to have her feeding tube removed. That procedure was carried out. She has some mild discomfort in the area of the tube insertion steadily improving. Tube was removed on 07/05/2017. She has had no dental issues. She didn't see the dentist over the past 2 months. She had been on a fentanyl patch as well as oral morphine. The patches were completed. She has not required any prescriptive oral pain medication in the past 3-4 days. She does take Aleve twice daily. For very short time. She was having facial pain. She called and discussed this with ENT. Gabapentin was prescribed. She did not start the medication. The discomfort resolved without difficulty. 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 This is also steadily improving. She only requires visits every 2 weeks. She does use Biotene for dryness of the mouth. This does persist and is quite difficult especially at night and first thing in the morning. Allergies Coded Allergies: Bupropion (Verified Allergy, Mild, Rash, 07/05/17) Erythromycin (Verified Allergy, Unknown, NAUSEA, 07/05/17) Metformin (Verified Allergy, Unknown, Rash, 07/05/17) Amoxicillin (Verified Adverse Reaction, Mild, Nausea, 07/05/17) Clavulanic Acid (Verified Adverse Reaction, Mild, Nausea, 07/05/17) Home Medications Scheduled Cholecalciferol (Vitamin D3), 1 TAB PO DAILY Multivitamin (Multivitamin), 1 TAB PO DAILY Naproxen (Aleve), 220 MG PO BID Rosuvastatin Calcium (Crestor), 1 TAB PO DAILY Scheduled PRN Morphine Sulfate (Morphine Sulfate), 5 MG PO Q4H PRN for Pain Trazodone Hcl (Trazodone), 25 MG PO HS PRN for Insomnia Miscellaneous Medications Calcium Polycarbophil (Fiber Tabs) Review of Systems Gastrointestinal: Symptoms: WNL Oral: Symptoms: Scant Saliva/Dry Mouth Other Oral Symptoms: "things burn my tongue, swallowing is not too bad, " Respiratory: Symptoms: WNL Sputum Character: Hiccoughs frequently Other Respiratory: Phlegm collects in back of throat - coughs this up Urinary: Symptoms: WNL Skin: Symptoms: No Problems Other Skin Symptoms: therapist is working on surgical scar Physical Exam Vital Signs Date Time Temp Pulse Resp B/P (MAP) Pulse Ox O2 Delivery O2 Flow Rate FiO2 07/28/17 13:06 36.3 102 20 121/76 100 Pain: Pain Onset: since radiation Pain Duration: since radiation Side: Left Patient Pain Scale: 0 - 10 Initial Pain Intensity: 2.5 Pain Description: Soreness Additional Comments: sore if presses on cheek Fatigue: None General Appearance: no apparent distress Eyes: normal inspection, PERRL ENT: normal ENT inspection, hearing grossly normal, + pertinent finding ( postoperative changes of the tongue. There is no desquamation. There are no ulcerations. There is no white exudate.) Neck: no adenopathy, thyroid normal, + pertinent finding (submental edema steadily improving) Respiratory/Chest: lungs clear, no respiratory distress, no accessory muscle use Cardiovascular: regular rate, rhythm, no gallop, no murmur Abdomen: non tender, soft Extremities: no pedal edema Neurologic/Psychiatric: no motor/sensory deficits, alert, normal mood/affect Skin: warm/dry Laboratory Studies Test 05/25/17 15:17 White Blood Count 5.65 K/uL (4.8-10.8) Red Blood Count 4.46 M/uL (4.2-5.4) Hemoglobin 13.4 g/dL (12.0-16.0) Hematocrit 40.6 % (37-47) Mean Corpuscular Volume 91.0 fL (80-100) Mean Corpuscular Hemoglobin 30.0 pg (25-34) Mean Corpuscular Hemoglobin Concent 33.0 g/dl (32-36) Platelet Count 265 K/uL (130-400) Mean Platelet Volume 10.3 fL (7.4-10.4) Neutrophils (%) (Auto) 77.8 % Lymphocytes (%) (Auto) 13.8 % Monocytes (%) (Auto) 7.1 % Eosinophils (%) (Auto) 1.1 % Basophils (%) (Auto) 0.0 % Neutrophils # (Auto) 4.40 K/uL (1.4-6.5) Lymphocytes # (Auto) 0.78 K/uL (1.2-3.4) Monocytes # (Auto) 0.40 K/uL (0.11-0.59) Eosinophils # (Auto) 0.06 K/uL (0-0.5) Basophils # (Auto) 0.00 K/uL (0-0.2) RDW Standard Deviation 42.9 fL (36.4-46.3) RDW Coefficient of Variation 12.9 % (11.5-14.5) Immature Granulocyte % (Auto) 0.2 % Immature Granulocyte # (Auto) 0.01 K/uL (0.00-0.02) Sodium Level 137 mmol/L (136-145) Potassium Level 4.2 mmol/L (3.5-5.1) Chloride Level 99 mmol/L (98-107) Carbon Dioxide Level 32 mmol/L (21-32) Anion Gap 6.0 mmol/L (3-11) Blood Urea Nitrogen 22 mg/dl (7-18) Creatinine 0.58 mg/dl (0.60-1.20) Estimated GFR () 116.1 Estimated GFR (Non- 100.2 BUN/Creatinine Ratio 37.1 (10-20) Random Glucose 100 mg/dl (70-99) Calcium Level 9.5 mg/dl (8.5-10.1) Magnesium Level 2.4 mg/dl (1.8-2.4) Total Bilirubin 0.2 mg/dl (0.2-1) Aspartate Amino Transferase (AST) 25 U/L (15-37) Alanine Aminotransferase (ALT) 28 U/L (12-78) Alkaline Phosphatase 77 U/L (45-117) Total Protein 7.5 gm/dl (6.4-8.2) Albumin 3.6 gm/dl (3.4-5.0) Globulin 3.9 gm/dl (2.5-4.0) Albumin/Globulin Ratio 0.9 (0.9-2) Thyroid Stimulating Hormone (TSH) 0.682 uIu/ml (0.300-4.500) Additional Studies She had a CT of the neck 06/14/2017. This showed interval surgical changes to the left neck as well as likely post radiation inflammation of the overlying anterior soft tissues. There is a new poorly defined abnormal soft tissue fullness along the left posterior lateral base the tongue extending caudally into the hypopharynx with obliteration of the left piriform sinus and extending caudally below the level of the hyoid bone to the top of the lower necks where there is rightward mass effect and narrowing of the supraglottic laryngeal airway. Group Sales Manager examples include serious to, image 41. Difficult to tell if this is all post surgical/post radiation change or if it this represents local tumor recurrence. Recommend visualization. Assessment & Plan Plan: Continue regular follow-up with ENT. She hasn't appointment next week. He does NPL examinations. Continue the Aleve as needed twice daily. Prescription was given for pilocarpine 5 mg 1 by mouth 3 times a day when necessary #90 and 5 refills. I've asked her to try taking this one at bedtime to start. She continues on the Biotene products. She was seen and examined by Dr. García. We asked her to return to our office in 6 months. She may call if she has any questions or concerns in the interim. Assessment & Plan (Attending) Plan: The results of the scan was reviewed with the patient by Dr. García. These do recommend direct visualization. She will have an NPL examination by the ENT physician next week. He will be able to visualize whether there are posttreatment changes versus recurrence. A prescription was given for pilocarpine 5 mg 1 by mouth 4 times a day when necessary #90 and 5 refills. I' ve asked her to try taking this at bedtime at first. It may be increased if needed. She continues with Aleve twice a day as needed for pain. She'll continue regular follow-up with the dentist. We discussed her taste quality. I reviewed with her that this may gradually improve or could possibly stay the same. She had a significant reaction during her treatment. And this has caused the ageusia and xerostomia. She'll continue the Biotene products. We asked her to return to our office in 6 months. She may call if she has any questions or concerns in the interim. She'll continue follow-up at the lymphedema clinic for the submental edema. Total Time In Follow-Up I spent 20 minutes speaking to the patient perform examination. I spent 15 minutes reviewing information in completing this note. Total Time (Attending) In Follow-Up I spent 20 minutes examining and counseling the patient. I spent 5 minutes completing this note. DOCUMENT PREPARER MICROFILMING Copy To Lucie Blank; Naresh Carvalho M.D.
== END | disposition home or self-care (01) ==
LOC: C.ONC 12:57
PROVIDERS: ATTEND Physician Assistant Medical
DX: Z08 Encounter for follow-up examination after completed treatment for malignant neoplasm (principal); Z92.3 Personal history of irradiation; Z85.810 Personal history of malignant neoplasm of tongue

== ENCOUNTER → 2017-12-23 | Outpatient (CLI) | payer BC ==
[~2017-12-23] MED LIST changes: +FLUO40CA8 PO; +MULTIVITAMIN PO
[2017-12-23 13:26] VITALS: BP 101/65; PULSE 88; TEMP 36.5; O2SAT 94
--- NOTE | 2017-12-23 14:52 | Radiation Oncology Follow-Up ---
Radiation Oncology Follow-Up Date of Visit Dec 23, 2017. Reason For Visit Six-month follow-up Radiation Completion Date finished 03-05-2017 Diagnosis (1) Tongue cancer Status: Resolved Onset Date: 09/26/2015 Location: Left lateral tongue Histology Subtype: Squamous cell carcinoma Stage: lll Permanent Comment: STAGING: Oral cavity, left lateral tongue, SCC, p16 negative , [id number], stage III Biopsy 03/25/2016 benign Status post partial glosectomy 09/26/15 Status post re-excision for recurrence 11/21/2015 Biopsy 07/01/2016 showing recurrence squamous cell carcinoma Status post partial glossectomy and node dissection 09/29/2016 Status post neck dissection 10/29/2016 Squamous cell carcinoma stage pT1 pN1 M0 Status post completion of radiation therapy 03/05/2017 received 6600 cGy Last Edited By: Antonella Devi on Mar 19, 2017 10:28 History of Present Illness Ms. aTriq presented to her dentist and had an ulcer on her tongue that was persistent that was not getting better. The patient initiated a biopsy on 03/25 which only revealed acanthotic squamous mucosa. The patient subsequently underwent a partial glossectomy underneath the supervision of Dr. Naresh Carvalho on 09/26/2015 which revealed invasive well-differentiated squamous cell carcinoma; the margins were initially positive however all the margins were reexcised during the procedure and were ultimately negative. The tumor specimen measured up to 4 mm in the greatest dimension in the thickness was 1.4 mm and was grade 1. Unfortunately, the patient developed a recurrence and underwent a reexcision on 11/21/2015 which confirmed recurrent invasive squamous cell carcinoma and high- grade dysplasia with close margins measuring 0.3 mm of the deep margin; All the other peripheral margins were negative. The patient continued to do relatively well until there were concerning findings along the left lateral tongue and the patient underwent a MRI of the head and neck on 08/04/2016 which revealed no evidence of malignancy. The patient had a repeat biopsy on 07/01/2016 which revealed ulcerated and infiltrating moderately differentiated squamous cell carcinoma that is p16 negative. The patient underwent a left partial glossectomy with sentinel lymph node biopsy on 09/29/2016 which revealed moderately differentiated invasive squamous cell carcinoma that measured 1.2 cm in the greatest dimension. The tumor thickness was 6 mm and it was grade 2. There is no evidence of lymphovascular space invasion or perineural invasion. 3 sentinel lymph nodes were also excised at the time of surgery and 1 lymph node Kienbck positive for metastatic squamous cell carcinoma with no evidence of extracapsular extension. The patient was brought back to the operating room on 10/29/2016 for a left neck dissection. In total, 28 lymph nodes were excised and all were negative for metastatic squamous cell carcinoma. The patient was seen in consultation by Dr. Hernandez from radiation oncology at [facility]. Dr. Hernandez recommended adjuvant radiation therapy to the postoperative site, left and right necks. At the time of her radiation oncology consultation, there was concern for potential recurrence along the left lateral tongue in the patient was referred back to Dr. Carvalho who felt it was most likely related to healthy granulation tissue. The patient wanted to consider a second opinion consultation so we are now seeing the patient in consultation. Overall, the patient is doing relatively well. She currently has no pain or difficulty swallowing. She is doing relatively well overall. Status post completion of radiation therapy 03/05/2017 received 6600 cGy. Interim History She has had steady improvement in the discomfort she had had in the mouth and throat. She no longer requires any pain medication. These were steadily tapered and stopped. She does have some mild discomfort that can be up to level 5 in the left lower jaw area. She feels this may have started after using dental floss. She is noted no areas of redness or drainage. She continued to have difficulty with taste. She continues to have xerostomia. This is slightly improved. She did have recheck CAT scans ordered by Dr. Carvalho. Allergies Coded Allergies: Bupropion (Verified Allergy, Mild, Rash, 07/05/17) Erythromycin (Verified Allergy, Unknown, NAUSEA, 07/05/17) Metformin (Verified Allergy, Unknown, Rash, 07/05/17) Amoxicillin (Verified Adverse Reaction, Mild, Nausea, 07/05/17) Clavulanic Acid (Verified Adverse Reaction, Mild, Nausea, 07/05/17) Home Medications Scheduled Cholecalciferol (Vitamin D3), 1 TAB PO DAILY Fluoxetine Hcl (Prozac), 1 CAP PO DAILY Rosuvastatin Calcium (Crestor), 1 TAB PO DAILY [multivitamin gummys], 2 TABS PO DAILY Scheduled PRN Naproxen (Aleve), 220 MG PO BID PRN for Moderate Pain Trazodone Hcl (Trazodone), 25 MG PO HS PRN for Insomnia Review of Systems Gastrointestinal: Symptoms: WNL Oral: Symptoms: Scant Saliva/Dry Mouth Other Oral Symptoms: "tastes too big of bites " , tongue hurts at times where surgery was don Respiratory: Symptoms: WNL Sputum Character: Hiccoughs frequently Other Respiratory: Phlegm collects in back of throat - coughs this up Urinary: Symptoms: WNL Skin: Symptoms: No Problems Other Skin Symptoms: therapist is working on surgical scar Physical Exam Vital Signs Date Time Temp Pulse Resp B/P (MAP) Pulse Ox O2 Delivery O2 Flow Rate FiO2 12/23/17 13:26 36.5 88 16 101/65 94 Fatigue: None General Appearance: no apparent distress Eyes: normal inspection, EOMI ENT: hearing grossly normal, + pertinent finding (Postoperative changes are noted of the tongue. There are no ulcerations. There is no sign of thrush. Inspecting the jawline there is no erythema. There is no areas of abscess formation.) Neck: no adenopathy, + pertinent finding (Postoperative changes with very minimal submental edema) Respiratory/Chest: lungs clear, no respiratory distress, no accessory muscle use Cardiovascular: regular rate, rhythm, no gallop, no murmur Neurologic/Psychiatric: no motor/sensory deficits, alert, normal mood/affect Skin: warm/dry Pain Management Patient Reports Pain: Yes Side: Left Pain Location: lower jaw Patient Preferred Pain Scale: 0 - 10 Initial Pain Intensity: 1.5 Pain Management Plan The pain is minimal and does not require pain management. Laboratory Laboratory Results: not applicable Pathology Pathology Results: not applicable Imaging Imaging Studies: were reviewed Imaging Comments CT findings reviewed in Dr. Carvalho's note and did not reveal any findings of recurrence. Assessment & Plan Plan: Patient was also seen and examined by Dr. García. She will continue regular follow-up with her primary care provider as well as ENT. It is planned that she will be having recheck CT scan again in February. She will have these closer to home. She has completed her physical therapy for the submental edema. She feels this did help and does not require any further therapy at this time. She is going to follow-up with her dentist in regards to discomfort along the jawline and continue with her regular visits and cleanings. We asked her to return to our office in 6 months. She may call if she has any questions or concerns in the interim. Assessment & Plan (Attending) I agree with note created by Antonella Devi PA-C. I reviewed the patient's chart and information with her. I have examined and evaluated the patient. I reviewed relevant clinical information and answered the patient's and/or family' s questions. SCIENCE CENTER DISPLAY BUILDER Total Time In Follow-Up I spent 20 minutes speaking to the patient and performing examination. I spent 15 minutes reviewing information and completing this note. Total Time (Attending) In Follow-Up I spent 15 minutes examining and counseling the patient. SCIENCE CENTER DISPLAY BUILDER Copy To Lucie Blank
== END | disposition home or self-care (01) ==
LOC: C.ONC 13:20
PROVIDERS: ATTEND Physician Assistant Medical
DX: Z08 Encounter for follow-up examination after completed treatment for malignant neoplasm (principal); Z92.3 Personal history of irradiation; Z85.810 Personal history of malignant neoplasm of tongue

== ENCOUNTER → 2018-06-07 | Day surgery (SDC) | payer BC ==
[2018-05-09 15:31] VITALS: Ht 152.4 cm; Wt 55.0 kg
[~2018-06-07] VITALS: Ht 152.4 cm; Wt 55.0 kg
[~2018-06-07] MED LIST changes: +500ML BSS 0.3ML EPI 1:1000PF IRRIG ONE; +ACETAMINOPHEN 325 MG TAB PO PRN; +AMVISC PLAIN 0.8ML SYRINGE INT OCU ONE; +AMVISC PLUS 0.8ML SYRINGE INT OCU ONE; +ATROPINE SULFATE 0.1 MG/ML 5ML SYR IV PRN; +BSS FLUSH ONE; -CALC625T13; +CALC8.5C PO; -CHOL1000 PO; +ERGO2000 PO; +EpHEDrine SULFATE INJ 50 MG/ML AMP IV PRN; +EpINEphrine INJ 1MG/ML AMP 1 MG/ML AMP ONE; +LACTATED RINGER'S 1000ML 500 ML IV SCH; +LIDOCAINE 3.5% OPH GEL PER APPLICATION CHARGE ONE; +LIDOCAINE HCL 1% MPF 2 ML VIAL ONE; +MIDAZOLAM HCL 1 MG/ML 2ML VIAL ONE; +MULT-1018 PO; -MULTIVITAMIN PO; -NAPR1TAB9 PO; +NRN100 PO; +ONDANSETRON INJ 2 MG/ML 2 ML VIAL ONE; +POVIDONE-IODINE OP SOLN 30 ML BTL ONE; +PROPARACAINE 0.5% OP SOLN PER DROP CHARGE OPL SCH; -RXNS10 PO; +SODIUM CHLORIDE 0.9% 500ML IV SCH; +TOBRAMYCIN/DEXAMETHASONE OPH OINT PER APPLN CHARGE ONE
[2018-06-07] MEDS: PHENYLEPHRINE HCL 2.5% OP SOLN PER DROP CHARGE OPL SCH ×2 (07:46→07:51)
[2018-06-07] MEDS: TROPICAMIDE 1% OP SOLN PER DROP CHARGE OPL SCH ×2 (07:47→07:52)
[2018-06-07] MEDS: CYCLOPENTOLATE HCL 1% OP SOLN PER DROP CHARGE OPL SCH ×2 (07:48→07:53)
[2018-06-07] MEDS: GATIFLOXACIN OP SOLN PER DROP CHARGE OPL SCH ×2 (07:49→08:00)
[2018-06-07] MEDS: KETOROLAC 0.5% OP SOLN PER DROP CHARGE OPL SCH ×2 (07:49→07:54)
--- NOTE | 2018-06-07 08:18 | History & Physical Bridge - SC ---
H&P Re-Evaluation Bridge Note: I have examined the patient, reviewed the History & Physical and in the interval since the performance of the History & Physical I have noted the following changes of clinical significance: Diagnosis: Left Cataract Procedure: Left Cataract Removal with Lens Implant No changes noted
--- NOTE | 2018-06-07 09:13 | [facility] Operative Report ---
Operative Report Date of Service Jun 07, 2018. Operative Report 1. PREOPERATIVE DIAGNOSIS: Cataract of the left eye. 2. POSTOPERATIVE DIAGNOSIS: Same. 3. PROCEDURE: Phacoemulsification with intraocular lens implantation of the left eye. SURGEON: Dr. Lico Syed. ANESTHESIA: Topical Lidocaine gel, 1% Non- Preserved intracameral Lidocaine, and monitored intravenous sedation. INDICATIONS FOR THE PROCEDURE: The patient is a 62 - year-old female with a history of cataract of the left eye causing significant visual impairment. The details of the proposed procedure were explained to the patient who asked appropriate questions and following discussion of all risks, benefits and alternatives agreed to have the procedure done. Patient had corneal astigmatism and therefore elected to have a toric lens placed. 4. OPERATION AND FINDINGS: DESCRIPTION OF PROCEDURE: After informed consent was obtained, the patient was placed in an upright position and the cornea was marked at 175 degrees using the yourdelivery corneal marking tool. The patient was brought to the Operating Room at the [facility]. The patient was placed in a supine position and then the left eye was prepped and draped in the usual sterile fashion for intraocular surgery. A drop of topical Lidocaine gel was placed in the operative eye. A wire lid speculum was then placed in the fornices. A corneal paracentesis was then created temporally. The Non-Preserved Lidocaine was then instilled into the anterior chamber. The anterior chamber was then pressurized with viscoelastic. A 2.0 mm clear corneal incision was then created temporally. A cystotome was inserted into the anterior chamber and used to create a tear in the anterior lens capsule. This capsular tear was then used to create a small flap and the flap was dragged in a counterclockwise direction in order to create a continuous curvilinear capsulorrhexis. Hydrodissection was accomplished with balanced salt solution. Phacoemulsification of the lens nucleus was then performed in a standard divide- and-conquer technique. The phaco time was 14 seconds with an average power of 10 %. The remaining cortical material was removed using irrigation aspiration. The capsular bag was then filled with viscoelastic. A Santiago [id number] +16.5 diopters lens was then loaded into the injector and injected into the capsular bag. The remaining viscoelastic was removed with the irrigation aspiration handpiece. The lens was aligned with the previously made corneal gleason. The wound was hydrated and then checked and found to be watertight. The intraocular pressure was checked and found to be adequate. The wire lid speculum was removed and the patient's face was cleaned and dried. TobraDex ointment was placed in the inferior fornix. The patient was discharged to the Recovery Room having tolerated the procedure well. There were no complications. The patient will be seen tomorrow in the office for follow-up. I attest to the content of the Intraoperative Record and any orders documented therein. Any exceptions are noted below.
--- NOTE | 2018-06-07 09:14 | Discharge Instructions-[facility] ---
Discharge Instructions Date of Service Jun 07, 2018. Visit Reason for Visit: Left Cataract Discharge Discharge Diagnosis / Problem: cataract Discharge Goals Goal(s): Improve function Activity Recommendations Activity Limitations: per Instructions/Follow-up section Anesthesia . Post Anesthesia Instructions: If you have had General Anesthesia or IV Sedation: * Do not drive today. * Resume driving when surgeon permits. * Do not make important decisions or sign legal documents today. * Call surgeon for: 1. Temperature elevations greater than 101 degrees F. 2. Uncontrollable pain. 3. Excessive bleeding. 4. Persistent nausea and vomiting. 5. Medication intolerance (nausea, vomiting or rash). * For nausea and vomiting use only clear liquids such as: tea, soda, bouillon until nausea subsides, then gradually increase diet as tolerated. * If you have any concerns or questions, call your surgeon's office. If physician is unavailable and it is an emergency, call 911 or go to the nearest emergency room. . Diet Recommendations Home Diet: resume previous diet Procedures Procedures Performed: Left Cataract Phacoemulsification With Intraocular Lens Implant; Toric Restor Lens Pending Studies Studies pending at discharge: no Medical Emergencies . Who to Call and When: Medical Emergencies: If at any time you feel your situation is an emergency, please call 911 immediately. . Non-Emergent Contact Non-Emergency issues call your: [employer] . . "Provider Documentation" section prepared by Lico Syed. .
[2018-06-07 09:19] VITALS: TEMP 36
--- NOTE | 2018-06-07 09:32 | Anesthesia Progress Nt - [facility] ---
Anesthesia Post Op Note Date & Time Jun 07, 2018 at 09:32 Vital Signs Pain Intensity: 0 Vital Signs Past 12 Hours Date Time Temp Pulse Resp B/P (MAP) Pulse Ox O2 Delivery O2 Flow Rate FiO2 06/07/18 09:19 36.0 71 16 120/73 (89) 97 Room Air 06/07/18 07:40 36.5 86 20 125/71 (89) 98 Room Air Notes Mental Status: alert / awake / arousable, participated in evaluation Pt Amnestic to Procedure: Yes Nausea / Vomiting: adequately controlled Pain: adequately controlled Airway Patency, RR, SpO2: stable & adequate BP & HR: stable & adequate Hydration State: stable & adequate Anesthetic Complications: no major complications apparent
[2018-06-07 09:37] VITALS: BP 125/75; PULSE 76; O2SAT 98
== END | disposition home or self-care (01) ==
LOC: X.SURG 07:07
PROVIDERS: ATTEND Ophthalmology
DX: E11.36 Type 2 diabetes mellitus with diabetic cataract (principal); H26.9 Unspecified cataract; Z87.891 Personal history of nicotine dependence; Z88.8 Allergy status to other drugs, medicaments and biological substances; Z88.1 Allergy status to other antibiotic agents; Z85.810 Personal history of malignant neoplasm of tongue